=== PATIENT | female | born 2000 | race Caucasian/White ===

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

== ENCOUNTER → 2020-03-18 | Outpatient (REF) | payer OTHER ==
[2020-03-18 15:59] LABS: HEMATOCRIT 41.8 % (36.0-47.0); HEMOGLOBIN 13.1 g/dl (12.0-15.5); MEAN CORPUSCULAR HEMOGLOBIN 30.5 pg (27.0-33.0); MEAN CORPUSCULAR HGB CONC 31.3 g/dl (32.0-36.5); MEAN CORPUSCULAR VOLUME 97.4 fl (80.0-96.0); PLATELET COUNT, AUTOMATED 358 10^3/uL (150-450); RED BLOOD COUNT 4.29 10^6/uL (4.00-5.40); WHITE BLOOD COUNT 10.3 10^3/uL (4.0-10.0)
[2020-03-18 16:17] LABS: FREE T4 0.97 NG/DL (0.78-1.33); GLUCOSE CHALLENGE TEST 1 HOUR 115 MG/DL (LESS THAN 140); THYROID STIMULATING HORMONE 0.537 uIU/ML (0.463-3.98)
[2020-03-18 16:41] LABS: HEMOGLOBIN A1c 4.7 %
[2020-03-18 17:00] LABS: HEPATITIS C VIRUS ABY INDEX 0.1 INDEX (<0.8); HIV 1&2 SCREEN CENTAUR NEGATIVE (NEGATIVE)
[2020-03-21 14:09] LABS: VITAMIN D 1,25 DIHYDROXY 77.7 pg/mL (19.9-79.3)
== END ==
LOC: M PLALAB 11:29
PROVIDERS: ATTEND Advanced Practice Midwife
DX: Z3A.08 8 weeks gestation of pregnancy (principal)

== ENCOUNTER → 2020-05-02 | Outpatient (REF) | payer OTHER ==
[2020-05-02 14:31] LABS: ALT/SGPT 27 U/L (12-78); BILIRUBIN,DIRECT < 0.1 MG/DL (0.0-0.2); BILIRUBIN,TOTAL 0.1 MG/DL (0.2-1.0); TOTAL PROTEIN 6.6 GM/DL (6.4-8.2)
== END ==
LOC: M PLALAB 11:17
PROVIDERS: ATTEND Advanced Practice Midwife
DX: L29.9 Pruritus, unspecified (principal)

== ENCOUNTER → 2020-05-12 | Outpatient (CLI) | payer OTHER ==
--- NOTE | 2020-05-12 08:52 | REP ---
INDICATION: ANATOMY COMPARISON: None. TECHNIQUE: Transabdominal obstetrical ultrasound with color Doppler evaluation. FINDINGS: Examination demonstrates a single live intrauterine in cephalic presentation. motion is identified by technologist. Placenta is noted posterior and grade 1 without evidence for placenta previa or abruption. Amniotic fluid volume is normal. Cervix measures 4.6 cm in length and appears closed. Gestational age by 1st ultrasound: Not available. Gestational age by LMP: Not available. Gestational age by current measurements 19 weeks 3 days with DEWAYNE 10/03/2020. FHR equals 158 beats per minute. BPD: 4.5 cm at 19 weeks 5 days HC: 16.6 cm at 19 weeks 2 days AC: 13.9 cm at 19 weeks 2 days FL: 3.1 cm at 19 weeks 5 days HL: 2.9 cm at 19 weeks 3 days HC/AC: 1.19 Estimated weight 295 grams (49thpercentile). Anatomical assessment demonstrates normal structures including cranium, choroid plexus, cavum, cerebellum/posterior fossa, facial features, lungs, four-chamber heart/ventricular outflow tracts, diaphragm, stomach, cord insertion/three-vessel cord, kidneys/bladder, spine, and extremities. IMPRESSION: SINGLE LIVE INTRAUTERINE IN CEPHALIC PRESENTATION DEMONSTRATING APPROPRIATE ESTIMATED WEIGHT. ANATOMICAL ASSESSMENT IS COMPLETE AND NORMAL. <Electronically signed by Ovidio Callaway > 05/12/20 [id number]
== END ==
LOC: M WHC 06:47
PROVIDERS: ATTEND Advanced Practice Midwife
DX: Z36.3 Encounter for antenatal screening for malformations (principal); Z3A.19 19 weeks gestation of pregnancy

== ENCOUNTER → 2020-06-19 | Outpatient (REF) | payer OTHER | LOC: M PLALAB 08:17 | PROVIDERS: ATTEND Obstetrics & Gynecology | DX: Z3A.24 24 weeks gestation of pregnancy (principal); Z53.9 Procedure and treatment not carried out, unspecified reason ==

== ENCOUNTER 2020-07-02 07:10 | Outpatient (CLI) | payer OTHER ==
[~2020-07-02] VITALS: Ht 162.6 cm; Wt 104.9 kg
[2020-07-02 07:24] VITALS: BP 128/66
[2020-07-02] MEDS ORDERED: metroNIDAZOLE (FLAGYL) 500MG TABLET PO ONE (09:45)
[2020-07-02 11:41] LABS: CHLAMYDIA DNA AMPLIFICATION NEGATIVE (NEGATIVE); GC DNA AMPLIFICATION NEGATIVE (NEGATIVE)
== END 2020-07-02 09:38 | disposition home or self-care (01) ==
LOC: M LDO 07:10
PROVIDERS: ATTEND Obstetrics & Gynecology
DX: O23.592 Infection of other part of genital tract in pregnancy, second trimester (principal); B96.89 Other specified bacterial agents as the cause of diseases classified elsewhere; Z3A.26 26 weeks gestation of pregnancy

== ENCOUNTER → 2020-07-07 | Outpatient (REF) | payer OTHER ==
[2020-07-07 13:43] LABS: HEMATOCRIT 38.8 % (36.0-47.0); HEMOGLOBIN 12.4 g/dl (12.0-15.5); MEAN CORPUSCULAR HEMOGLOBIN 31.1 pg (27.0-33.0); MEAN CORPUSCULAR VOLUME 97.2 fl (80.0-96.0); PLATELET COUNT, AUTOMATED 344 10^3/uL (150-450); RED BLOOD COUNT 3.99 10^6/uL (4.00-5.40); WHITE BLOOD COUNT 12.1 10^3/uL (4.0-10.0)
== END ==
LOC: M PLALAB 09:48
PROVIDERS: ATTEND Obstetrics & Gynecology
DX: Z36.89 Encounter for other specified antenatal screening (principal); Z3A.24 24 weeks gestation of pregnancy

== ENCOUNTER 2020-08-16 23:54 | Outpatient (CLI) | payer OTHER ==
[~2020-08-16] VITALS: Ht 162.6 cm; Wt 109.3 kg
[2020-08-17 00:10] VITALS: BP 130/74
[2020-08-17] MEDS ORDERED: PREN29CH2 PO (00:15)
[2020-08-17 01:23] VITALS: BP 117/70
[2020-08-17] MEDS ORDERED: ACETAMINOPHEN 500 MG TAB PO PRN (01:35)
[2020-08-17 02:35] VITALS: BP 134/75
--- NOTE | 2020-08-17 15:00 | IPNPDOC ---
Text Note Date of Service The patient was seen on 08/17/20. NOTE L&D Triage Note: S: 20yo G1 at 33wks presets with c/o back and abd pain. Reports active movement. No vaginal bleeding or LO . O: vss, AF cat 1 tracing, irreg ctx Gen: well appearing abd: soft, gravid, nttp cx: closed UA: neg FFN: neg A/P: 26yo G1 at 33wks, not in PTL Reassuring status -home with PTL precautions and FKC -oral hydration Naima Jin MD VS,Candis, I+O VSCandis, I+O Vital Signs Date Time Temp Pulse Resp B/P (MAP) Pulse Ox O2 Delivery O2 Flow Rate FiO2 08/17/20 02:35 104 18 134/75 (94) 08/17/20 00:10 96.9 97 Room Air NAIMA JIN MD. Aug 17, 2020 15:00
== END 2020-08-17 02:46 | disposition home or self-care (01) ==
LOC: M LDO 23:54
PROVIDERS: ATTEND Obstetrics & Gynecology
DX: O26.893 Other specified pregnancy related conditions, third trimester (principal); Z3A.33 33 weeks gestation of pregnancy; R10.9 Unspecified abdominal pain; M54.5 Low back pain; Z88.1 Allergy status to other antibiotic agents; Z88.8 Allergy status to other drugs, medicaments and biological substances

== ENCOUNTER → 2020-08-19 | Outpatient (CLI) | payer OTHER ==
[~2020-08-19] MED LIST changes: +PREN29CH2 PO
--- NOTE | 2020-08-19 16:39 | REP ---
INDICATION: SIZE/DATE DISCREPANCY/GROWTH COMPARISON: 05/12/2020 TECHNIQUE: Transabdominal obstetrical ultrasound with color Doppler evaluation. FINDINGS: Examination demonstrates a single live intrauterine in cephalic presentation. motion is identified by technologist. Placenta is noted posterior and grade 2 without evidence for placenta previa or abruption. Amniotic fluid volume is normal. Cervix appears closed. Selected gestational age: 33 weeks 4 days with DEWAYNE 10/03/2020. Gestational age by current measurements 35 weeks 3 days with DEWAYNE 09/20/2020. FHR equals 140 beats per minute. BPD: 9.0 cm at 36 weeks 2 days HC: 31.1 cm at 34 weeks 6 days AC: 31.8 cm at there is 35 weeks 5 days FL: 7.0 cm at 35 weeks 6 days HL: 6.0 cm at 34 weeks 3 days HC/AC: 0.98 Estimated weight 2745 grams (greater than 97thpercentile based on selected age). ROMINA: 17.2 cm (8.2-24.7) Umbilical artery SD ratio: 3.23 (1.76-3.72) IMPRESSION: Single live advanced gestation in cephalic presentation. Estimated weight is greater than 97th percentile based on selected age. <Electronically signed by Ovidio Callaway > 08/19/20 [id number]
== END ==
LOC: M WHC 15:27
PROVIDERS: ATTEND Obstetrics & Gynecology
DX: O26.843 Uterine size-date discrepancy, third trimester (principal); Z3A.33 33 weeks gestation of pregnancy

== ENCOUNTER 2020-09-01 16:04 | Outpatient (CLI) | payer OTHER ==
[~2020-09-01] VITALS: Ht 160 cm; Wt 111.9 kg
[2020-09-01 17:08] VITALS: BP 136/64
--- NOTE | 2020-09-01 17:14 | IPNPDOC ---
Text Note Date of Service The patient was seen on 09/01/20. NOTE Subjective: Angela is a 20-year-old female who is a at 35.3 weeks gestation who presented to L&D with complaints of decreased movement. She reports occasional movement noted throughout the day but decreased and about 1 per hour. She reports some abdominal tightening but no pain and occasional low back pain. She denies vaginal bleeding or leaking of fluid. After being in the department for 30 minutes she reports active movement. She also reports she see her baby moving from the outside. Objective: FHR: 140, moderate variability, positive accelerations, no decelerations. Audible movement heart on EFM [place]: Contractions 2-5 minutes. General: No apparent distress. Alert and oriented. Respiratory: regular rate without use of accessory muscles Abdomen: gravid, soft and without any tenderness of abdomen. movement palpated by touch by myself. US: cephalic presentation, active movement noted and breathing motions noted. ROMINA >13 cm. Assessment: IUP at 35.3 weeks gestation, decreased movement Plan: non-stress test today. Bedside ultrasound done. She has an appointment . Discharged to home. Reviewed access to care, kick count, labor signs and danger signs to report. VS,Fishbone, I+O VS, Fishbone, I+O Vital Signs Label Value Date Time Patient Temperature 98.6 degrees F 09/01/20 1708 Temperature Source Temporal 09/01/20 1708 Pulse 96 09/01/20 1708 Respiratory Rate 18 bpm 09/01/20 1708 Blood Pressure Assessment 136/64 (88) 09/01/20 1708 Source Automatic Cuff (NIBP) SANDHYA CASTELLON CNM Sep 01, 2020 17:14
== END 2020-09-01 18:25 | disposition home or self-care (01) ==
LOC: M LDO 16:04
PROVIDERS: ATTEND Advanced Practice Midwife
DX: O36.8130 Decreased fetal movements, third trimester, not applicable or unspecified (principal); Z3A.35 35 weeks gestation of pregnancy; Z88.1 Allergy status to other antibiotic agents; Z88.8 Allergy status to other drugs, medicaments and biological substances

== ENCOUNTER → 2020-09-04 | Outpatient (REF) | payer OTHER | LOC: M SFHCWAGY 16:57 | PROVIDERS: ATTEND Advanced Practice Midwife | DX: O99.213 Obesity complicating pregnancy, third trimester (principal); E66.9 Obesity, unspecified ==

== ENCOUNTER → 2020-09-12 | Outpatient (CLI) | payer OTHER ==
--- NOTE | 2020-09-12 08:36 | REP ---
INDICATION: UTERINE SIZE DATE DISCRPANCY,GROWTH COMPARISON: 08/19/2020 TECHNIQUE: Transabdominal obstetrical ultrasound with color Doppler evaluation. FINDINGS: Examination demonstrates a single live intrauterine in cephalic presentation. motion is identified by technologist. Placenta is noted posterior and grade 2 without evidence for placenta previa or abruption. Amniotic fluid volume is normal. Cervix measures 3.2 cm in length and appears closed.. Selected gestational age: 37 weeks 0 days with DEWAYNE 10/03/2020. Gestational age by current measurements 37 weeks 5 days with DEWAYNE 09/28/2020. FHR equals 127 beats per minute. BPD: 9.4 cm at 38 weeks 2 days HC: 33.4 cm at there is 30 weeks 1 day AC: 33.5 cm at 37 weeks 2 days FL: 7.3 cm at 37 weeks 1 day HL: 6.5 cm at 37 weeks 4 days HC/AC: 1.00 Estimated weight 3230 grams (70thpercentile). ROMINA: 15.6 cm Umbilical artery SD ratio: 2.21 IMPRESSION: Single live intrauterine in cephalic presentation demonstrating appropriate interval growth. Amniotic fluid volume is normal. <Electronically signed by Ovidio Callaway > 09/12/20 0354
== END ==
LOC: M WHC 07:27
PROVIDERS: ATTEND Advanced Practice Midwife
DX: O26.843 Uterine size-date discrepancy, third trimester (principal); Z3A.37 37 weeks gestation of pregnancy

== ENCOUNTER 2020-09-24 21:13 | Inpatient (IN) | payer OTHER ==
[~2020-09-24] VITALS: Ht 162.6 cm; Wt 117.0 kg
[2020-09-24 21:30] VITALS: BP 136/67
[2020-09-24] MEDS ORDERED: PENICILLIN G POTASSIUM IV 5 MU in D5W MINI-BAG PLUS 100 ML IV STA (22:00)
[2020-09-24] MEDS ORDERED: METHYLERGONOVINE MALEATE 0.2 MG/ML VIAL (J2210) IM PRN (22:00)
[2020-09-24] MEDS ORDERED: LIDOCAINE 1% MDV 20ML VIAL INFIL PRN (22:00)
[2020-09-24] MEDS ORDERED: OXYTOCIN DRIP 30 UNITS in IV 1 EA IV SCH (22:00)
[2020-09-24] MEDS ORDERED: OXYTOCIN INJ 10 UNITS/ML VIAL (J2590) IM PRN (22:00)
[2020-09-24] MEDS ORDERED: OXYTOCIN DRIP 30 UNITS in IV 1 EA IV PRN (22:00)
[2020-09-24 22:26] LABS: HEMATOCRIT 34.5 % (36.0-47.0); HEMOGLOBIN 11.3 g/dl (12.0-15.5); MEAN CORPUSCULAR HEMOGLOBIN 29.9 pg (27.0-33.0); MEAN CORPUSCULAR HGB CONC 32.8 g/dl (32.0-36.5); MEAN CORPUSCULAR VOLUME 91.3 fl (80.0-96.0); PLATELET COUNT, AUTOMATED 283 10^3/uL (150-450); RED BLOOD COUNT 3.78 10^6/uL (4.00-5.40); WHITE BLOOD COUNT 15.2 10^3/uL (4.0-10.0)
--- NOTE | 2020-09-24 22:48 | HPE ---
HISTORY AND PHYSICAL DATE OF ADMISSION: 09/24/2020 HISTORY OF PRESENT ILLNESS: Angela is a 20-year-old, 1, para 0 at 38 and 5/7 weeks gestation, EDC of 10/03/2020 based on last menstrual period and confirmed by first trimester ultrasound. She presents to labor and delivery today with report of spontaneous rupture of membranes at approximately 2039. She does report continued leakage. She denies vaginal bleeding. The fetus has been active. She does report some mild cramping prior and after her rupture of membranes. Her care was initiated at [facility] in the first trimester. 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 OBSTETRIC HISTORY: Primigravida. OBSTETRIC LABS: A+. Antibody screen negative. Syphilis negative. Gonorrhea and Chlamydia negative. Hepatitis B negative. Hepatitis C negative. HIV negative. Rubella immune. GDS 112. GBS positive. She did test positive for Trichomoniasis in the early part of her . PAST MEDICAL HISTORY: Organic brain damage, obesity, concussion x2, exercise induced asthma, childhood Varicella, menorrhagia, paroxysmal hemicrania. PAST SURGICAL HISTORY: Denies history of surgeries. FAMILY HISTORY: Diabetes, hypertension, non-psychotic mental disorder, hypothyroid, degenerative disc disease, depression, bipolar, scoliosis, esophageal cancer, hypercholesterolemia. SOCIAL HISTORY: The patient is single. The father of the baby is at bedside as well as her mother and they are supportive. She is a nonsmoker. She denies alcohol or drug use. Positive history of Trichomoniasis. Denies history of abuse; physical, sexual, emotional. ALLERGIES: Cefdinir causes hives. Clindamycin causes hives. Azithromycin hives. Tramadol hives. Doxycycline hives. Bupropion irritability. OBJECTIVE: VITALS: Temperature 98.1, pulse 118, respirations not recorded, blood pressure 136/67. GENERAL: She is alert and oriented x3. She is smiling and talkative. heart rate is 145 with minimal variability, positive accelerations, negative decelerations. Contractions appear to be every 5 minutes. They do palpate mild. Her abdomen is gravid, cephalic presentation. Estimated weight 4200 grams. Sterile speculum exam: Positive pooling, positive Nitrazine, ferning is inconclusive, clear fluid. Sterile vaginal exam: 2 cm dilated, 50% effaced, at -2 station. ASSESSMENT: Intrauterine at 38 and 5/7 weeks. heart rate is category 1. Spontaneous rupture of membranes. PLAN: Admit the patient to labor and delivery. Start GBS prophylaxis, saline lock. Routine laboratories. Out of bed ad-david. Clear diet. The patient desires to try to avoid an epidural for her labor. I do plan to start I.V. Pitocin for labor induction. Risks, benefits and alternatives have been reviewed with the patient and her family. All of their questions have been answered. She has been verbally consented for emergency surgery and blood products if they are necessary. I do anticipate labor.
[2020-09-24] MEDS: LR 1,000 ML IV SCH (23:20)
[2020-09-24 23:32] VITALS: BP 111/54
[2020-09-25] VITALS (80 sets, daily range): BP systolic 82–144; BP diastolic 40–80
[2020-09-25] MEDS ORDERED: FENTANYL 2MCG/ML ROPIVACAINE 0.2% IN 0.9% NACL 100ML IVBAG As Ordered ONE (01:32)
[2020-09-25] MEDS ORDERED: NALOXONE INJ 0.4MG/1ML VIAL (J2310 PER 1MG) IV PRN ×3 (02:40→21:02)
[2020-09-25] MEDS ORDERED: diphenhydrAMINE 50MG/ML VIAL (J1200) IV PRN ×2 (02:40→21:02)
[2020-09-25] MEDS ORDERED: LACTATED RINGER'S 1000 ML IV PRN (02:40)
[2020-09-25] MEDS ORDERED: ONDANSETRON 4MG/2ML VIAL IV PRN ×4 (02:40→22:20)
[2020-09-25] MEDS ORDERED: EPIDURAL COMMENT XX SCH (02:40)
[2020-09-25] MEDS ORDERED: REFRIGERATOR IV KEYS XX PRN (02:40)
[2020-09-25] MEDS ORDERED: EPIDURAL/PCA KEYS XX PRN (02:40)
[2020-09-25] MEDS: FENTANYL/ROPIVACAINE/NACL BAG 100 ML EPIDURAL SCH ×3 (02:45→19:14)
[2020-09-25] MEDS: ePHEDrine SULFATE 25 MG/5 ML(5MG/ML) SYRINGE IV PRN ×3 (03:16→03:29)
[2020-09-25] MEDS: PENICILLIN G POTASSIUM IV 2.5 MU in IV 1 EA IV SCH ×5 (03:21→19:43)
[2020-09-25] MEDS ORDERED: ePHEDrine SULFATE 25 MG/5 ML(5MG/ML) SYRINGE IV STA (04:35)
[2020-09-25] MEDS: LR 1,000 ML IV SCH ×3 (07:07→21:05)
[2020-09-25] MEDS ORDERED: MORPHINE PRES-FREE INJ 10 MG/10 ML VIAL (J2274) As Ordered ONE (20:35)
[2020-09-25] MEDS ORDERED: OXYTOCIN 30 UNITS IN 0.9% NaCl 500ML IV BAG (J2590) As Ordered ONE (20:36)
[2020-09-25] MEDS ORDERED: BICITRA 30ML SOLN UDC As Ordered ONE (20:41)
[2020-09-25] MEDS ORDERED: AMPICILLIN SOD/SULBACTAM SOD 3 GM in D5W MINI-BAG PLUS 100 ML IV STA (20:44)
[2020-09-25] MEDS ORDERED: NALBUPHINE HCL 10 MG/ML AMP (J2300) IV PRN (21:02)
[2020-09-25] MEDS ORDERED: METOCLOPRAMIDE INJ 10MG/2ML VIAL (J2765 PER 1) IV PRN (21:02)
--- NOTE | 2020-09-25 21:02 | IPNPDOC ---
Obstetrical Progress Note Date of Service Sep 25, 2020 Subjective Patient has been pushing now for approximate 2 hours. She reports exhaustion and unable to continue to push. Objective Vital Signs Date Time Temp Pulse Resp B/P (MAP) Pulse Ox O2 Delivery O2 Flow Rate FiO2 09/25/20 15:05 98.6 116 120/65 (83) 09/25/20 09:34 18 Assessment Heart Rate Tracing: Category I Sterile Vaginal Examination Dilation: complete Effacement (%): 100% Station: +1 Postion/Presentation: Cephalic presentation Assessment and Plan Age: 20 Status: Reassuring Group B Streptococcus: Positive Anticipate: Section (patient's been thoroughly counseled in terms of her options. Discussed further actively pushing. Patient is not a good candidate for an operative delivery at this time. Patient declines and desires to proceed with section for arrest of descent.) KEVIN CHINO MD. Sep 25, 2020 21:02
[2020-09-25] MEDS ORDERED: MEASLES,MUMPS,RUBELLA VACCINE INJ (MMR-II) (90707) SC SCH (21:05)
[2020-09-25] MEDS ORDERED: PERCOCET 5MG/325MG TAB PO PRN (21:05)
[2020-09-25] MEDS ORDERED: MOM 30ML SUSPENSION UDC PO PRN (21:05)
[2020-09-25] MEDS ORDERED: RHOGAM 300 MCG (1500 IU) INJ (J2790) IM SCH (21:05)
[2020-09-25] MEDS ORDERED: SIMETHICONE 80MG CHEW TAB PO PRN (21:05)
[2020-09-25] MEDS ORDERED: OXYTOCIN DRIP 30 UNITS in IV 1 EA IV SCH (21:05)
--- NOTE | 2020-09-25 21:09 | ROOPDOC ---
[facility] Report Of Operation Report of Operation DATE OF PROCEDURE: 09/25/20 SURGEON: Naima Jin M.D. BRISKET PULLER: none PROCEDURE: Primary section PREOPERATIVE DIAGNOSIS: 1. Arrest of descent POSTOPERATIVE DIAGNOSIS: 1. Arrest of descent ANESTHESIA: Spinal ESTIMATED BLOOD LOSS: 500 mL URINE OUTPUT: 100 mL INTRAVENOUS FLUIDS:1400 mL of lactated Ringer's solution PREOPERATIVE ANTIBIOTICS:. 3 g of Unasyn OPERATIVE FINDINGS: Liveborn male , Apgars 7 and 9. Weight 3680 g or 8 lbs. 2 oz. SPECIMENS: None DESCRIPTION OF PROCEDURE: After informed consent was obtained and written consent was reviewed. The patient was brought to the operating room where spinal anesthesia was placed. She was then placed in the supine position with a left lateral tilt. Wade catheter was placed and to gravity. Patient was then prepped and draped in the normal sterile fashion. A timeout operating room was performed identifying the patient, procedure be performed as well as drug allergies. Anesthesia was tested and deemed to be adequate. Pfannenstiel skin incision was made and this was carried down to the underlying rectus fascia. The fascia was then scored and this incision was extended bilaterally. The fascia was then dissected off the underlying rectus muscle superiorly and inferiorly. The rectus muscles were then in the midline. The peritoneum is then entered. Vesicouterine peritoneum was then tented and excised and a bladder flap was created. Mobius retractor was then placed. Next, a curvilinear incision was then made in the lower uterine segment. The head was brought to the level of the incision atraumatically and delivered along the shoulders and corpus. The cord was clamped x2. The was brought over to the warmer with a good cry. Placenta was drained and delivered grossly intact. The uterus was cleared of all clots and debris and the uterine incision was then closed using 0 Vicryl in a running locking fashion followed by a second layer of 0 Vicryl in a running nonlocking fashion for imbrication. The abdomen suctioned. Surgical sites reinspected and noted be hemostatic. The retractor was then removed. The anterior peritoneum was then reapproximated with 3-0 Vicryl. The rectus muscles were reapproximated 3-0 Vicryl. The fascia was then closed using 0 Vicryl in a running nonlocking fashion. The subcutaneous tissues was then irrigated and suctioned. Subcutaneous tissue was reapproximated using 3-0 Vicryl. Several subdermal stitch is placed using 3-0 Vicryl and the skin was closed with 4-0 Monocryl and subcuticular fashion. This incision was then cleaned and dried and was dressed. The patient was then taken to recovery in stable condition. All counts were correct. NAIMA JIN MD. Sep 25, 2020 21:09
[2020-09-25] MEDS ORDERED: PHENYLephrine 500MCG 5ML (100MCG/ML) SYRINGE As Ordered ONE ×2 (21:11→21:41)
[2020-09-25] MEDS ORDERED: dexameTHASONE 4 MG/ML 1ML VIAL (J1100 PER 1MG) As Ordered ONE (21:11)
[2020-09-25] MEDS ORDERED: ONDANSETRON 4MG/2ML VIAL As Ordered ONE (21:11)
[2020-09-25] MEDS ORDERED: KETOROLAC 30 MG/ML 1ML VIAL IV SCH (21:15)
[2020-09-25] MEDS ORDERED: OXYTOCIN INJ 10 UNITS/ML VIAL (J2590) As Ordered ONE (21:36)
[2020-09-25] MEDS ORDERED: KETOROLAC 60MG 2ML VIAL As Ordered ONE (21:41)
[2020-09-25] MEDS ORDERED: HYDROMORPHONE HCL 0.5 MG/ 0.5 ML SYRINGE (J1170 PER 1) IV PRN (22:20)
[2020-09-25] MEDS ORDERED: oxyCODONE 5MG TAB PO PRN (22:20)
[2020-09-25] MEDS ORDERED: fentaNYL 100 MCG/2 ML INJECTION (J3010) As Ordered ONE (22:26)
[2020-09-25] MEDS: fentaNYL 100 MCG/2 ML INJECTION (J3010) IV PRN ×4 (22:32→22:59)
[2020-09-26] VITALS (9 sets, daily range): BP systolic 121–141; BP diastolic 60–84
[2020-09-26] MEDS: KETOROLAC 30 MG/ML 1ML VIAL IV SCH ×3 (03:17→16:38)
[2020-09-26] MEDS: LR 1,000 ML IV SCH ×3 (05:40→21:05)
[2020-09-26 07:48] LABS: HEMATOCRIT 30.7 % (36.0-47.0); HEMOGLOBIN 10.1 g/dl (12.0-15.5); MEAN CORPUSCULAR HEMOGLOBIN 30.4 pg (27.0-33.0); MEAN CORPUSCULAR HGB CONC 32.9 g/dl (32.0-36.5); MEAN CORPUSCULAR VOLUME 92.5 fl (80.0-96.0); PLATELET COUNT, AUTOMATED 269 10^3/uL (150-450); RED BLOOD COUNT 3.32 10^6/uL (4.00-5.40); WHITE BLOOD COUNT 22.7 10^3/uL (4.0-10.0)
--- NOTE | 2020-09-26 08:49 | IPNPDOC ---
Text Note Date of Service The patient was seen on 09/26/20. NOTE PO #1 Feels well. Adequate pain management. Wade draining to gravity VSS, afebrile, normotensive Fundus firm, NT Dressing dry and intact Lochia rubra light without odor PO #1 Routine care. Consider discharge in am VS,Fishbone, I+O VS, Fishbone, I+O Laboratory Tests 09/26/20 07:16 Vital Signs Date Time Temp Pulse Resp B/P (MAP) Pulse Ox O2 Delivery O2 Flow Rate FiO2 09/26/20 06:28 96.9 115 18 130/65 (86) 97 09/26/20 03:22 Room Air I&O- Last 24 Hours up to 6 AM 09/26/20 06:00 Intake Total 4342 ml Output Total 2750 ml Balance 1592 ml Nichelle Cm CNM Sep 26, 2020 08:49
[2020-09-26] MEDS: PRENATAL VITAMINS CHEWABLE TABLET PO SCH (10:08)
[2020-09-26] MEDS: DOCUSATE SODIUM 100MG CAPSULE PO SCH ×2 (10:08→22:19)
[2020-09-27] MEDS: IBUPROFEN 800 MG TAB PO SCH ×2 (00:45→08:30)
[2020-09-27 02:00] VITALS: BP 147/73
[2020-09-27] MEDS: PERCOCET 5MG/325MG TAB PO PRN ×2 (03:54→12:07)
[2020-09-27] MEDS: LR 1,000 ML IV SCH (05:05)
[2020-09-27 06:00] VITALS: BP 146/89
--- NOTE | 2020-09-27 07:34 | DS.PDOC ---
Discharge Summary General Date of Admission Sep 24, 2020 at 22:01 Date of Discharge September 27, 2020 Discharge Summary PROCEDURES PERFORMED DURING STAY: Primary section ADMITTING DIAGNOSES: 1. Prelabor rupture of membranes at term DISCHARGE DIAGNOSES: 1. Primary section for arrest of descent COMPLICATIONS/CHIEF COMPLAINT: LABOR. HISTORY OF PRESENT ILLNESS: HOSPITAL COURSE: Ms Pritchett is a 20yo G1 now P1 admitted 09/24/2020 with prelabor rupture of membranes at term. Primary section was performed for arrest of descent. She reports adequate pain management, OOB independently, voiding, passing flatus DISCHARGE MEDICATIONS: Please see below. ALLERGIES: Please see below. PHYSICAL EXAMINATION ON DISCHARGE: VITAL SIGNS: Please see below. GENERAL: No distress HEENT: WNL NECK: Supple CARDIOVASCULAR EXAMINATION: HRR, normotensive RESPIRATORY EXAMINATION: Clear and unlabored ABDOMINAL EXAMINATION: Fundus firm. Dressing intact EXTREMITIES: Equal strength and motion SKIN: Intact NEUROLOGICAL EXAMINATION: Grossly intact PSYCHIATRIC EXAMINATION: Appropriate LABORATORY DATA: Please see below. PROGNOSIS: Good ACTIVITY: As tolerated, pelvic rest DIET: As tolerated DISCHARGE PLAN: Home with family DISPOSITION: . DISCHARGE INSTRUCTIONS: 1. Pelvic rest. Remove dressing day 5. Cleanse wound daily with soap and water. Call with fever, nausea, vomiting, chills, foul lochia or wound exudate. RTO 2wks and 6 wks CONDITION: Stable TIME SPENT ON DISCHARGE: Greater than 10 minutes. Vital Signs/I&Os Vital Signs Date Time Temp Pulse Resp B/P (MAP) Pulse Ox O2 Delivery O2 Flow Rate FiO2 09/27/20 06:00 97.8 99 18 146/89 (108) 98 Room Air I&O- Last 24 Hours up to 6 AM 09/27/20 06:00 Intake Total 3300 ml Output Total 1370 ml Balance 1930 ml Discharge Medications Scheduled No115/Iron/Folic Acid ( 19 Chewable Tablet) 1 Each Tab.chew, 1 TAB PO DAILY, (Reported) Allergies Coded Allergies: tramadol (Verified Allergy, Severe, HIVES, ITCHY FACE AND SKIN, AND THROAT IRRITATION, 07/02/20) HIVES, ITCHY FACE AND SKIN, AND THROAT IRRITATION azithromycin (Verified Allergy, Unknown, 07/02/20) cefdinir (Verified Allergy, Unknown, 07/02/20) clindamycin (Verified Allergy, Unknown, 4/21/21) doxycycline (Verified Adverse Reaction, Mild, 07/02/20) Nichelle Carr Sep 27, 2020 07:28
[2020-09-27] MEDS ORDERED: PERCOCET PO (07:37)
[2020-09-27] MEDS ORDERED: IBUP80TA PO (07:37)
[2020-09-27] MEDS: DOCUSATE SODIUM 100MG CAPSULE PO SCH (09:46)
[2020-09-27] MEDS: PRENATAL VITAMINS CHEWABLE TABLET PO SCH (09:47)
== END 2020-09-27 12:15 | disposition home or self-care (01) | DRG 540 ==
LOC: M LDO 21:13 → M LDI 22:01 → M OBS 09-25 23:40
PROVIDERS: ADMIT Advanced Practice Midwife; ATTEND Advanced Practice Midwife
PROC: 3E033VJ Introduction of Other Hormone into Peripheral Vein, Percutaneous Approach (ICD-10-PCS; 2020-09-24)
PROC: 10D00Z1 Extraction of Products of Conception, Low, Open Approach (ICD-10-PCS; principal; 2020-09-25 21:30)
DX: O42.02 Full-term premature rupture of membranes, onset of labor within 24 hours of rupture (principal); Z3A.38 38 weeks gestation of pregnancy; Z37.0 Single live birth; O99.214 Obesity complicating childbirth; E66.9 Obesity, unspecified; O99.824 Streptococcus B carrier state complicating childbirth; O75.81 Maternal exhaustion complicating labor and delivery; O32.4XX0 Maternal care for high head at term, not applicable or unspecified

== ENCOUNTER → 2021-01-15 | Outpatient (CLI) | payer OTHER ==
[~2021-01-15] MED LIST changes: +IBUP80TA PO; +PERCOCET PO
--- NOTE | 2021-01-15 13:17 | REP ---
INDICATION: DATING VIABILITY IUD SURVELLIANCE. COMPARISON: None. TECHNIQUE: Transabdominal and endovaginal probe imaging. FINDINGS: The transabdominal images show the bladder at 4.1 x 6.6 cm. I do not have a transverse bladder image. There is a gestational sac in the body and fundus of the uterus with yolk sac visible. There is a pole within that has a crown-rump length of 1.5 cm corresponding to 7 weeks 6 days. heart activity noted at 155. The amniotic fluid volume is visually normal. I see no evidence for a subchorionic bleed. Transversely in the lower uterine segment and below the sac, an IUD is seen in the endometrial cavity, best on the EV probe images. Cervix is closed and 4.1 cm long. There is no evidence of an adnexal mass. No pelvic free fluid seen on these images. IMPRESSION: Living single intrauterine gestation at 7 weeks 6 days by today's composite sonographic criteria. heart rate 155. DEWAYNE by sonography 08/28/2021. No subchorionic bleed. IUD seen in the lower uterine segment transversely, best visualized on EV probe. <Electronically signed by Noel Holguin > 01/15/21 1857
== END ==
LOC: M WHC 09:32
PROVIDERS: ATTEND Obstetrics & Gynecology
DX: Z34.90 Encounter for supervision of normal pregnancy, unspecified, unspecified trimester (principal); Z3A.01 Less than 8 weeks gestation of pregnancy; Z36.87 Encounter for antenatal screening for uncertain dates; Z97.5 Presence of (intrauterine) contraceptive device

== ENCOUNTER 2021-01-22 15:16 | Emergency (ER) | payer OTHER ==
[~2021-01-22] VITALS: Ht 162.6 cm; Wt 99.0 kg
--- OUTSIDE RECORDS SUMMARY | 2021-01-22 15:24 | CCD ---
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 confirmed 397607139 Problem Severe depression F32.2 Active confirmed 31 4928478 Problem Supervision of other normal Z34.80 Ac tive confirm 681342150 Problem Obesity affecting in first trimester O99 .211 Active confirmed 799524452589 Problem Obesity complicating in first trimester O99.211 Active confirmed 865660569660 Problem Obesity complicating in third trimester O99.213 Active confirmed 078317794373 Problem Acute cystitis with hematuria N30.01 Active confirm ed 30112352 Problem BMI 40.0-44.9, adult Z68.41 Active confirmed 465349629 Problem Cyst of left ovary N83.202 Active confirmed 70088855 Problem Obesity complicating in second trimester O99.212 Active confirmed 005390513821 Problem BMI 37.0-37.9, adult Z68.37 Active confirmed 360805964 Problem Other obesity due to excess calories E66.09 Act eloise confirmed 750928160 Problem Obesity E66.9 Active confirmed 412991410 ALLERGIES Allergen (clinical drug ingredient) Drug/Non Drug Allergy do cumented on EMR Reaction Allergy Type Onset Date Status azithromycin Azithromycin([facility] Code:[address]-68) Hives Drug All ergy Active tramadol Tramadol HCl([facility] [place] Code:[address]-26) Hives Drug Aller gy Active cefdinir Cefdinir([facility] [place] Code:[address]-36) Hives Drug Allergy Active doxycycline Doxycycline([facility] [place] Code:[address]-30) Hives Drug Aller gy Active clindamycin Clindamycin HCl([facility] Code:[address]-60) Hives Drug A llergy Active bupropion BuPROPion HCl([facility] Code:[address]-68) Ir ritability - see 03/02/19 visit Drug Allergy Active ENCOUNTERS from 2000 to 2020-12-17 Encounter Location Date Provider Diagnosis [facility] [address] [place] [address] Dec, Marisa Mullen Severe depression F32.2 IMMUNIZATIONS Vaccine Route Administration Date Status Hepatitis B Ped & Adol 0.5mL Engerix-B Unknown July 25 002 Administered Hepatitis B Ped & Adol 0.5mL Engerix-B Unknown Nov 09 002 Administered TDAP Unknown Nov 25, 2010 Administered Influenza 36 months & up VFC IM Intramuscular Apr 04, 2017 Ad ministered Imm: IPV 0.5mL Polio Unknown May 02, 2001 Administere d Imm: IPV 0.5mL Polio Unknown July 25, 2001 Administere d Imm: IPV 0.5mL Polio Unknown Nov 10, 2004 Administere d Hepatitis B Ped & Adol 0.5mL Engerix-B Unknown 2000 Administered DTAP 0.5mL Infanrix Unknown 2000 Administered HPV9 0.5mL Gardasil 9 IM Intramuscular September 26, 2019 Administe red TDAP 0.5mL Boostrix IM Intramuscular July 17, 2020 Administere d HIB 0.5mL Unknown Feb 27, 2002 Administered HIB 0.5mL Unknown Nov 09, 2001 Administered HIB 0.5mL Unknown Jan 31, 2001 Administered HIB 0.5mL Unknown 2000 Administered DTAP 0.5mL Infanrix Unknown Nov 10, 2004 Administered DTAP 0.5mL Infanrix Unknown July 25, 2001 Administered DTAP 0.5mL Infanrix Unknown May 02, 2001 Administered DTAP 0.5mL Infanrix Unknown Jan 31, 2001 Administered Meningococcal VFC 0.5mL Menveo Groups A,C,Y & W-135 IM Intra muscular Oct 27, 2017 Administered Hepatitis A Ped & Adol 0.5mL Havrix Unknown Nov 25 1 Administered Hepatitis A Ped & Adol 0.5mL Havrix Unknown May 30 12 Administered Pneumococcal 0.5mL Prevnar 13 Unknown 2000 Ad ministered Pneumococcal 0.5mL Prevnar 13 Unknown May 02, 2001 Ad ministered Meningococcal B 0.5mL Bexsero IM Intramuscular September 26, 2019 A dministered MMR 0.5mL Unknown July 25, 2001 Administered Influenza 18 yrs & older Flublok IM Intramuscular Dec 20, 2019 Administered MMR 0.5mL Unknown Nov 10, 2004 Administered Influenza 6mo & up Fluzone IM Intramuscular Dec 22, 2017 Admi nistered Pneumococcal 0.5mL Prevnar 13 Unknown July 25, 2001 Ad ministered Pneumococcal 0.5mL Prevnar 13 Unknown Nov 09, 2001 Ad ministered Imm: IPV 0.5mL Polio Unknown Jan 31, 2001 Administere d SOCIAL HISTORY Tobacco Use: Social History Observation Description Date Details (start date - stop date) Never Smoker Sex Assigned At : Social History Observation Description Sex Assigned At Unknown Education: Question Answer Notes Level of Education: High School BMI Care Goal Follow-Up Question Answer Notes Above Normal BMI Follow-Up Giving encouragement to exercise Tobacco Use: Question Answer Notes Are you a: never smoker REASON FOR REFERRAL No Information VITAL SIGNS Weight 219.4 lbs Dec, Height 64 in Dec, BMI 37.66 kg/m2 Dec, Heart Rate 125 /min Dec, Respiratory Rate 18 /min Dec, Temperature 97.5 degrees Fahrenheit Dec, Oximetry 100 Dec, Blood pressure systolic 120 mm Hg Dec, Blood pressure diastolic 80 mm Hg Dec, MEDICATIONS Medication SIG (Take, Route, Frequency, Duration) Notes Start Da te End Date Status Omeprazole 20 MG 1 capsule 30 minutes before morning meal Orally Once a day for 30 day(s) July, Active Vitamin Active Venlafaxine HCl ER 75 MG 1 capsule with food Orally Once a day f or 30 day(s) Oct, Active Tylenol 325 MG 1 tablet as needed Orally every 4 hrs Active PROCEDURES No Information RESULTS No Results REASON FOR VISIT 4 week med follow up MEDICAL (GENERAL) HISTORY Type Description Date Medical History Exercise induced asthma Medical History Concussions x2 Medical History Severe depression Medical History Paroxysmal Hemicrania - See [facility] NEurology notes (Intermittent left sided facial weakness with headaches likely secondary to some nerve damage sustained in facial trauma - Improved with Indomethacin BID Medical History Menorrhagia - Manged by MEDICAL DATA ANALYST on BCP Surgical History c section Hospitalization History childbirth Goals Section No Information Health Concerns No Information MEDICAL EQUIPMENT No Information MENTAL STATUS No Information FUNCTIONAL STATUS No Information ASSESSMENTS Encounter Date Diagnosis Assessment Notes Treatment Notes Treatm ent Clinical Notes Dec, Severe depression (ICD-10 - F32.2) PLAN OF TREATMENT Medication Medication Name Sig Start Date Stop Date Venlafaxine HCl ER 75 MG 1 capsule with food Orally Once a d ay for 30 day(s) Oct, Next Appt Details 3 Months Reason: Provider Name:Naima Balaji Jin, 2020-12-19 0 8:00:00 AM, [address] [facility], , [place], [address], Insurance Providers Payer Name Payer Address Payer Phone Insured Name Patient Relati onship to Insured Coverage Start Date Coverage End Date [facility] [address] [facility] [address] [place]
--- OUTSIDE RECORDS SUMMARY | 2021-01-22 15:24 | CCD ---
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 confirmed 845495502 Problem Severe depression F32.2 Active confirmed 31 0081408 Problem Supervision of other normal Z34.80 Ac tive confirm 008640590 Problem Obesity affecting in first trimester O99 .211 Active confirmed 693812001049 Problem Obesity complicating in first trimester O99.211 Active confirmed 377079517623 Problem Obesity complicating in third trimester O99.213 Active confirmed 206394661679 Problem Acute cystitis with hematuria N30.01 Active confirm ed 28817347 Problem BMI 40.0-44.9, adult Z68.41 Active confirmed 756541508 Problem Cyst of left ovary N83.202 Active confirmed 92639317 Problem Obesity complicating in second trimester O99.212 Active confirmed 136830875984 Problem BMI 37.0-37.9, adult Z68.37 Active confirmed 976448523 Problem Other obesity due to excess calories E66.09 Act eloise confirmed 909360779 Problem Obesity E66.9 Active confirmed 358230397 ALLERGIES Allergen (clinical drug ingredient) Drug/Non Drug Allergy do cumented on EMR Reaction Allergy Type Onset Date Status azithromycin Azithromycin([facility] Code:[address]-42) Hives Drug All ergy Active tramadol Tramadol HCl([facility] Code:[address]-04) Hives Drug Aller gy Active cefdinir Cefdinir([facility] Code:[address]-08) Hives Drug Allergy Active doxycycline Doxycycline([facility] Code:[address]-06) Hives Drug Aller gy Active clindamycin Clindamycin HCl([facility] Code:[address]-17) Hives Drug A llergy Active bupropion BuPROPion HCl([facility] Code:[address]-18) Ir ritability - see 03/02/19 visit Drug Allergy Active ENCOUNTERS from 2000 to 2020-12-25 Encounter Location Date Provider Diagnosis [facility] [address] [place] [address] Dec, 2020 Marisa Wetterhahn Pertussis exposure Z20.818 IMMUNIZATIONS Vaccine Route Administration Date Status Hepatitis B Ped & Adol 0.5mL Engerix-B Unknown July 25, 002 Administered Hepatitis B Ped & Adol 0.5mL Engerix-B Unknown Nov 09, 002 Administered TDAP Unknown Nov 25, 2010 Administered TDAP 0.5mL Boostrix IM Intramuscular July 17, 2020 Administere d HIB 0.5mL Unknown Feb 27, 2002 Administered Influenza 6mo & up Fluzone IM Intramuscular Dec 22, 2017 Admi nistered Imm: IPV 0.5mL Polio Unknown Nov 10, 2004 Administere d Hepatitis B Ped & Adol 0.5mL Engerix-B Unknown 2000 Administered DTAP 0.5mL Infanrix Unknown 2000 Administered Influenza 36 months & up VFC IM Intramuscular Apr 04, 2017 Ad ministered Meningococcal VFC 0.5mL Menveo Groups A,C,Y & W-135 IM Intra muscular Oct 27, 2017 Administered MMR 0.5mL Unknown Nov 10, 2004 Administered MMR 0.5mL Unknown July 25, 2001 Administered HIB 0.5mL Unknown Jan 31, 2001 Administered HIB 0.5mL Unknown 2000 Administered DTAP 0.5mL Infanrix Unknown Nov 10, 2004 Administered DTAP 0.5mL Infanrix Unknown July 25, 2001 Administered DTAP 0.5mL Infanrix Unknown May 02, 2001 Administered DTAP 0.5mL Infanrix Unknown Jan 31, 2001 Administered HPV9 0.5mL Gardasil 9 IM Intramuscular September 26, 2019 Administe red Pneumococcal 0.5mL Prevnar 13 Unknown May 02, 2001 Ad ministered Pneumococcal 0.5mL Prevnar 13 Unknown July 25, 2001 Ad ministered Pneumococcal 0.5mL Prevnar 13 Unknown Nov 09, 2001 Ad ministered Imm: IPV 0.5mL Polio Unknown Jan 31, 2001 Administere d Meningococcal B 0.5mL Bexsero IM Intramuscular September 26, 2019 A dministered Hepatitis A Ped & Adol 0.5mL Havrix Unknown Nov 25 1 Administered Influenza 18 yrs & older Flublok IM Intramuscular Dec 20, 2019 Administered Hepatitis A Ped & Adol 0.5mL Havrix Unknown May 30 12 Administered Pneumococcal 0.5mL Prevnar 13 Unknown 2000 Ad ministered Imm: IPV 0.5mL Polio Unknown May 02, 2001 Administere d Imm: IPV 0.5mL Polio Unknown July 25, 2001 Administere d HIB 0.5mL Unknown Nov 09, 2001 Administered SOCIAL HISTORY Tobacco Use: Social History Observation Description Date Details (start date - stop date) Never Smoker Sex Assigned At : Social History Observation Description Sex Assigned At Unknown Education: Question Answer Notes Level of Education: High School Alcohol Screening: Question Answer Notes Did you have a drink containing alcohol in the past year? Ye s Points 1 Interpretation Negative How often did you have six or more drinks on one occas ion in the past year? Never (0 points) How many drinks did you have on a typica l day when you were drinking in the past year? 1 or 2 (0 points) How often did you have a drink containing alcohol in t he past year? Monthly or less (1 point) BMI Care Goal Follow-Up Question Answer Notes Above Normal BMI Follow-Up Giving encouragement to exercise Tobacco Use: Question Answer Notes Are you a: never smoker REASON FOR REFERRAL No Information VITAL SIGNS No information MEDICATIONS Medication SIG (Take, Route, Frequency, Duration) Notes Start Da te End Date Status Omeprazole 20 MG 1 capsule 30 minutes before morning meal Orally Once a day for 30 day(s) July, Active Venlafaxine HCl ER 75 MG 1 capsule with food Orally Once a day f or 30 day(s) Oct, Active Vitamin Active Bactrim DS 800-160 MG 1 tablet Orally Twice a day for 14 day(s) Dec, Active Tylenol 325 MG 1 tablet as needed Orally every 4 hrs Active PROCEDURES No Information RESULTS No Results REASON FOR VISIT Mom dx MEDICAL (GENERAL) HISTORY Type Description Date Medical History Exercise induced asthma Medical History Concussions x2 Medical History Severe depression Medical History Paroxysmal Hemicrania - See [facility] NEurology notes (Intermittent left sided facial weakness with headaches likely secondary to some nerve damage sustained in facial trauma - Improved with Indomethacin BID Medical History Menorrhagia - Manged by AUTOMOTIVE PROJECT ENGINEER on BCP Surgical History c section Hospitalization History childbirth Goals Section No Information Health Concerns No Information MEDICAL EQUIPMENT No Information MENTAL STATUS No Information FUNCTIONAL STATUS No Information ASSESSMENTS Encounter Date Diagnosis Assessment Notes Treatment Notes Treatm ent Clinical Notes Dec, Pertussis exposure (ICD-10 - Z20.818) PLAN OF TREATMENT Medication Medication Name Sig Start Date Stop Date Bactrim DS 800-160 MG 1 tablet Orally Twice a day for 14 day(s) Dec, Next Appt Details Provider Name:Naima Jin, 2021-02-20 1 0:00:00 AM, [address] [facility], , [place], [address], Insurance Providers Payer Name Payer Address Payer Phone Insured Name Patient Relati onship to Insured Coverage Start Date Coverage End Date [facility]AN [facility] [address] [facility] [id number] [phone] [place]
--- OUTSIDE RECORDS SUMMARY | 2021-01-22 15:24 | CCD ---
Author Author [facility] Organization 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 confirmed 537162741 Problem Severe depression F32.2 Active confirmed 31 4535151 Problem Supervision of other normal Z34.80 Ac tive confirm 782189315 Problem Obesity affecting in first trimester O99 .211 Active confirmed 786593684157 Problem Obesity complicating in first trimester O99.211 Active confirmed 808514751802 Problem Obesity complicating in third trimester O99.213 Active confirmed 379402936448 Problem Acute cystitis with hematuria N30.01 Active confirm ed 29613823 Problem BMI 40.0-44.9, adult Z68.41 Active confirmed 105183595 Problem Cyst of left ovary N83.202 Active confirmed 09538821 Problem Obesity complicating in second trimester O99.212 Active confirmed 383199700213 Problem BMI 37.0-37.9, adult Z68.37 Active confirmed 849834615 Problem Other obesity due to excess calories E66.09 Act eloise confirmed 953887130 Problem Obesity E66.9 Active confirmed 603012658 ALLERGIES Allergen (clinical drug ingredient) Drug/Non Drug Allergy do cumented on EMR Reaction Allergy Type Onset Date Status azithromycin Azithromycin([facility] Code:[address]-80) Hives Drug All ergy Active tramadol Tramadol HCl([facility] Code:[address]-72) Hives Drug Aller gy Active cefdinir Cefdinir([facility] Code:[address]-00) Hives Drug Allergy Active doxycycline Doxycycline([facility] Code:[address]-08) Hives Drug Aller gy Active clindamycin Clindamycin HCl([facility] Code:[address]-76) Hives Drug A llergy Active bupropion BuPROPion HCl([facility] Code:[address]-80) Ir ritability - see 03/02/19 visit Drug Allergy Active ENCOUNTERS from 2000 to 2020-12-19 Encounter Location Date Provider Diagnosis [facility] [facility] [phone] [place] [address] Dec, [facility] IMMUNIZATIONS Vaccine Route Administration Date Status Hepatitis B Ped & Adol 0.5mL Engerix-B Unknown July 25 002 Administered Hepatitis B Ped & Adol 0.5mL Engerix-B Unknown Nov 09 002 Administered TDAP Unknown Nov 25, 2010 Administered TDAP 0.5mL Boostrix IM Intramuscular July 17, 2020 Administere d Imm: IPV 0.5mL Polio Unknown May 02, [...] IM Intra muscular Oct 27, 2017 Administered HIB 0.5mL Unknown Feb 27, 2002 Administered [...] IM Intramuscular September 26, 2019 Administe red Hepatitis A Ped & Adol 0.5mL Havrix Unknown Nov 25 1 Administered Hepatitis A Ped & Adol 0.5mL Havrix Unknown May 30 12 Administered Pneumococcal 0.5mL Prevnar 13 Unknown 2000 Ad ministered Pneumococcal 0.5mL Prevnar 13 Unknown May 02, 2001 Ad ministered Meningococcal B 0.5mL Bexsero IM Intramuscular September 26, 2019 A dministered Influenza 6mo & up Fluzone IM Intramuscular Dec 22, 2017 Admi nistered Influenza 18 yrs & older Flublok IM Intramuscular Dec 20, 2019 Administered MMR 0.5mL Unknown July 25, 2001 Administered MMR 0.5mL Unknown Nov 10, 2004 Administered Pneumococcal 0.5mL Prevnar 13 Unknown July 25, [...] Notes Start Da te End Date Status Vitamin Active Tylenol 325 MG 1 tablet as needed Orally every 4 hrs Active Omeprazole 20 MG 1 capsule 30 minutes before morning meal Orally Once a day for 30 day(s) July, Active Venlafaxine HCl ER 75 MG 1 capsule with food Orally Once a day f or 30 day(s) Oct, Active PROCEDURES No Information RESULTS No Results REASON FOR VISIT NEEDS APPT MEDICAL (GENERAL) HISTORY Type Description Date Medical History Exercise induced asthma Medical History Concussions x2 Medical History Severe depression Medical History Paroxysmal Hemicrania - See [facility] NEurology notes (Intermittent left sided facial weakness with headaches likely secondary to some nerve damage sustained in facial trauma - Improved with Indomethacin BID Medical History Menorrhagia - Manged by FISHING VESSEL CAPTAIN on BCP Surgical History c section Hospitalization History childbirth Goals Section No Information Health Concerns No Information MEDICAL EQUIPMENT No Information MENTAL STATUS No Information FUNCTIONAL STATUS No Information ASSESSMENTS No Information PLAN OF TREATMENT Next Appt Details Provider Name:Naima Jin, 2021-02-20 1 0:00:00 AM, [address] [facility], , [place], [address], Insurance Providers Payer Name Payer Address Payer Phone Insured Name Patient Relati onship to Insured Coverage Start Date Coverage End Date [facility] [employer] PLAN [facility] [address] [facility] [phone] [place]
--- OUTSIDE RECORDS SUMMARY | 2021-01-22 15:24 | CCD ---
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 confirmed 547972383 Problem Severe depression F32.2 Active confirmed 31 6815045 Problem Supervision of other normal Z34.80 Ac tive confirm 549370754 Problem Obesity affecting in first trimester O99 .211 Active confirmed 497998878012 Problem Obesity complicating in first trimester O99.211 Active confirmed 191666248893 Problem Obesity complicating in third trimester O99.213 Active confirmed 980524935549 Problem Acute cystitis with hematuria N30.01 Active confirm ed 14593488 Problem BMI 40.0-44.9, adult Z68.41 Active confirmed 915845314 Problem Cyst of left ovary N83.202 Active confirmed 16498966 Problem Obesity complicating in second trimester O99.212 Active confirmed 371520572135 Problem BMI 37.0-37.9, adult Z68.37 Active confirmed 272260919 Problem Other obesity due to excess calories E66.09 Act eloise confirmed 946041538 Problem Obesity E66.9 Active confirmed 675506499 ALLERGIES Allergen (clinical drug ingredient) Drug/Non Drug Allergy do cumented on EMR Reaction Allergy Type Onset Date Status azithromycin Azithromycin([facility] Code:[address]-53) Hives Drug All ergy Active tramadol Tramadol HCl([facility] Code:[address]-51) Hives Drug Aller gy Active cefdinir Cefdinir([facility] Code:[address]-15) Hives Drug Allergy Active doxycycline Doxycycline([facility] Code:[address]-86) Hives Drug Aller gy Active clindamycin Clindamycin HCl([facility] Code:[address]-77) Hives Drug A llergy Active bupropion BuPROPion HCl([facility] Code:[address]-78) Ir ritability - see 03/02/19 visit Drug Allergy Active ENCOUNTERS from 2000 to 2021-01-14 Encounter Location Date Provider Diagnosis [facility] [facility] [phone] [place] [address] Jan, [facility] IMMUNIZATIONS Vaccine Route Administration Date Status Hepatitis [...] 0.5mL Prevnar 13 Unknown 2000 Ad ministered Influenza 6mo & up Fluzone IM Intramuscular Dec 22, 2017 Admi nistered Pneumococcal 0.5mL Prevnar 13 Unknown May 02, 2001 Ad ministered Meningococcal B 0.5mL Bexsero IM Intramuscular September 26, 2019 A dministered MMR 0.5mL Unknown July 25, 2001 Administered Influenza 18 yrs & older Flublok IM Intramuscular Dec 20, 2019 Administered MMR 0.5mL Unknown Nov 10, 2004 Administered Hepatitis A Ped & Adol 0.5mL Havrix Unknown Nov 25 1 Administered Pneumococcal 0.5mL Prevnar 13 Unknown July [...] a day f or 30 day(s) Oct, Not-Taking Bactrim DS 800-160 MG 1 tablet Orally Twice a day for 14 day(s) Dec, Not-Taking Vitamin Active Tylenol 325 MG 1 tablet as needed Orally every 4 hrs Active PROCEDURES No Information RESULTS No Results REASON FOR VISIT IUD/positive test MEDICAL (GENERAL) HISTORY Type Description Date Medical History Exercise induced asthma Medical History Concussions x2 Medical History Severe depression Medical History Paroxysmal Hemicrania - See [facility] NEurology notes (Intermittent left sided facial weakness with headaches likely secondary to some nerve damage sustained in facial trauma - Improved with Indomethacin BID Medical History Menorrhagia - Manged by RUG SETTER VELVET on BCP Surgical History c section Hospitalization History childbirth Goals Section No Information Health Concerns No Information MEDICAL EQUIPMENT No Information MENTAL STATUS No Information FUNCTIONAL STATUS No Information ASSESSMENTS No Information PLAN OF TREATMENT Next Appt Details Provider Name:Naima Jin, 2021-02-20 1 0:00:00 AM, [address] [facility], , [place], [address], Insurance Providers Payer Name Payer Address Payer Phone Insured Name Patient Relati onship to Insured Coverage Start Date Coverage End Date FORMERLY [facility] COMMUNITY PLAN [facility] [address] [facility] [phone] BING NASSAR
--- OUTSIDE RECORDS SUMMARY | 2021-01-22 15:24 | CCD ---
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 confirmed 443702083 Problem Severe depression F32.2 Active confirmed 31 0886936 Problem Supervision of other normal Z34.80 Ac tive confirm 264356783 Problem Obesity affecting in first trimester O99 .211 Active confirmed 137454005166 Problem Obesity complicating in first trimester O99.211 Active confirmed 257087730765 Problem Obesity complicating in third trimester O99.213 Active confirmed 141891082750 Problem Acute cystitis with hematuria N30.01 Active confirm ed 94658395 Problem BMI 40.0-44.9, adult Z68.41 Active confirmed 175556296 Problem Cyst of left ovary N83.202 Active confirmed 95093665 Problem Obesity complicating in second trimester O99.212 Active confirmed 487923051507 Problem BMI 37.0-37.9, adult Z68.37 Active confirmed 873874546 Problem Other obesity due to excess calories E66.09 Act eloise confirmed 337861798 Problem Obesity E66.9 Active confirmed 855952883 ALLERGIES Allergen (clinical drug ingredient) Drug/Non Drug Allergy do cumented on EMR Reaction Allergy Type Onset Date Status azithromycin Azithromycin([facility] Code:[address]-94) Hives Drug All ergy Active tramadol Tramadol HCl([facility] Code:[address]-04) Hives Drug Aller gy Active cefdinir Cefdinir([facility] Code:[address]-19) Hives Drug Allergy Active doxycycline Doxycycline([facility] Code:[address]-21) Hives Drug Aller gy Active clindamycin Clindamycin HCl([facility] Code:[address]-52) Hives Drug A llergy Active bupropion BuPROPion HCl([facility] Code:[address]-52) Ir ritability - see 03/02/19 visit Drug Allergy Active ENCOUNTERS from 2000 to 2020-12-31 Encounter Location Date Provider Diagnosis [facility] [address] [facility] [phone] [place] [address] Dec, [facility] Encounter for initia l prescription of intrauterine contraceptive device (IUD) Z30.014 IMMUNIZATIONS Vaccine Route Administration Date Status Hepatitis [...] FOR REFERRAL No Information VITAL SIGNS Weight 218.6 lbs Dec, Height 64 in Dec, BMI 37.52 kg/m2 Dec, Blood pressure systolic 122 mm Hg Dec, Blood pressure diastolic 74 mm Hg Dec, MEDICATIONS Medication SIG (Take, [...] needed Orally every 4 hrs Active PROCEDURES from 2000 to 2020-12-31 Procedure Date Ordered Result Body Site Medication: Meli 13.5 mg (levonorgestrel intrauterine contraceptive system) 2020-12-19 N/A URINE TEST 2020-12-19 Negative RESULTS No Results REASON FOR VISIT MELI INSERTION MEDICAL (GENERAL) HISTORY Type Description Date Medical History Exercise induced asthma Medical History Concussions x2 Medical History Severe depression Medical History Paroxysmal Hemicrania - See [facility] NEurology notes (Intermittent left sided facial weakness with headaches likely secondary to some nerve damage sustained in facial trauma - Improved with Indomethacin BID Medical History Menorrhagia - Manged by THREE DIMENSIONAL ART INSTRUCTOR on BCP Surgical History c section Hospitalization History childbirth Goals Section No Information Health Concerns No Information MEDICAL EQUIPMENT No Information MENTAL STATUS No Information FUNCTIONAL STATUS No Information ASSESSMENTS Encounter Date Diagnosis Assessment Notes Treatment Notes Treatm ent Clinical Notes Dec, Encounter for initial prescr iption of intrauterine contraceptive device (IUD) (ICD-10 - Z30.014) PLAN OF TREATMENT Medication Medication Name Sig Start Date Stop Date Bactrim DS 800-160 MG 1 tablet Orally Twice a day for 14 day(s) Dec, Next Appt Details 6 Weeks Reason:yearly Provider Name:Naima Balaji Jin, 2021-02-20 1 0:00:00 AM, [address] [facility], , [place], [address], Follow Up:6 Weeksyearly Insurance Providers Payer Name Payer Address Payer Phone Insured Name Patient Relati onship to Insured Coverage Start Date Coverage End Date [facility] COMMUNITY [facility] [address] [facility] [phone] BING NASSAR
--- OUTSIDE RECORDS SUMMARY | 2021-01-22 15:24 | CCD ---
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 confirmed 178461939 Problem Severe depression F32.2 Active confirmed 31 1530805 Problem Supervision of other normal Z34.80 Ac tive confirm 680770169 Problem Obesity affecting in first trimester O99 .211 Active confirmed 772195688581 Problem Obesity complicating in first trimester O99.211 Active confirmed 505399057063 Problem Obesity complicating in third trimester O99.213 Active confirmed 586050011785 Problem Acute cystitis with hematuria N30.01 Active confirm ed 49058185 Problem BMI 40.0-44.9, adult Z68.41 Active confirmed 064608523 Problem Cyst of left ovary N83.202 Active confirmed 38976192 Problem Obesity complicating in second trimester O99.212 Active confirmed 117213496967 Problem BMI 37.0-37.9, adult Z68.37 Active confirmed 388114254 Problem Other obesity due to excess calories E66.09 Act eloise confirmed 759810620 Problem Obesity E66.9 Active confirmed 576064522 ALLERGIES Allergen (clinical drug ingredient) Drug/Non Drug Allergy do cumented on EMR Reaction Allergy Type Onset Date Status azithromycin Azithromycin([facility] Code:[address]-80) Hives Drug All ergy Active tramadol Tramadol HCl([facility] Code:[address]-68) Hives Drug Aller gy Active cefdinir Cefdinir([facility] Code:[address]-89) Hives Drug Allergy Active doxycycline Doxycycline([facility] Code:[address]-72) Hives Drug Aller gy Active clindamycin Clindamycin HCl([facility] Code:[address]-60) Hives Drug A llergy Active bupropion BuPROPion HCl([facility] Code:[address]-95) Ir ritability - see 03/02/19 visit Drug Allergy Active ENCOUNTERS from 2000 to 2020-11-08 Encounter Location Date Provider Diagnosis [facility] [address] [facility] [phone] [place] [address] Sep, [facility] examinati on following delivery Z39.2 IMMUNIZATIONS Vaccine Route Administration Date Status Hepatitis [...] FOR REFERRAL No Information VITAL SIGNS Weight 229.6 lbs Sep, Height 64 in Sep, BMI 39.41 kg/m2 Sep, Blood pressure systolic 122 mm Hg Sep, Blood pressure diastolic 70 mm Hg Sep, MEDICATIONS Medication SIG (Take, Route, Frequency, Duration) Notes Start Da te End Date Status COVID-19 mRNA Vacc (Moderna) Pfizer Not-Taking Vitamin Active Tylenol 325 MG 1 tablet as needed Orally every 4 hrs Active Venlafaxine HCl ER 75 MG 1 capsule with food Orally Once a day f or 30 day(s) Oct, Active metroNIDAZOLE 500 MG 1 tablet Orally Twice a day for 7 day(s) Jun, Not-Taking Venlafaxine HCl ER 37.5 MG 1 capsule with food Orally Once a day for 7 day(s) Oct, Active Omeprazole 20 MG 1 capsule 30 minutes before morning meal Orally Once a day for 30 day(s) July, Active PROCEDURES No Information RESULTS No Results REASON FOR VISIT 2 WK INCISION CHECK MEDICAL (GENERAL) HISTORY Type Description Date Medical History Exercise induced asthma Medical History Concussions x2 Medical History Severe depression Medical History Paroxysmal Hemicrania - See [facility] NEurology notes (Intermittent left sided facial weakness with headaches likely secondary to some nerve damage sustained in facial trauma - Improved with Indomethacin BID Medical History Menorrhagia - Manged by MACHINE GUIDE BASE WINDER on BCP Surgical History c section Hospitalization History childbirth Goals Section No Information Health Concerns No Information MEDICAL EQUIPMENT No Information MENTAL STATUS No Information FUNCTIONAL STATUS No Information ASSESSMENTS Encounter Date Diagnosis Assessment Notes Treatment Notes Treatm ent Clinical Notes Sep, examination follo wing delivery (ICD-10 - Z39.2) PLAN OF TREATMENT Next Appt Details 6 Weeks Reason:pp visit Provider Name:Marisa Mullen, 2020-11 08:15:00 AM, [address], , [place], [address], Provider Name:Naima Balaji Davin, 2020-12-19 0 8:00:00 AM, [address] [facility], , [place], [address], Follow Up:6 Weekspp visit Insurance Providers Payer Name Payer Address Payer Phone Insured Name Patient Relati onship to Insured Coverage Start Date Coverage End Date FORMERLY [facility] COMMUNITY PLAN [facility] [place] [place] [address] [facility] [phone] BING NASSAR
--- OUTSIDE RECORDS SUMMARY | 2021-01-22 15:24 | CCD ---
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 confirmed 638449520 Problem Severe depression F32.2 Active confirmed 31 3446979 Problem Supervision of other normal Z34.80 Ac tive confirm 194855631 Problem Obesity affecting in first trimester O99 .211 Active confirmed 538605507819 Problem Obesity complicating in first trimester O99.211 Active confirmed 732202800339 Problem Obesity complicating in third trimester O99.213 Active confirmed 074710312497 Problem Acute cystitis with hematuria N30.01 Active confirm ed 82962143 Problem BMI 40.0-44.9, adult Z68.41 Active confirmed 140300427 Problem Cyst of left ovary N83.202 Active confirmed 77112056 Problem Obesity complicating in second trimester O99.212 Active confirmed 179945604878 Problem BMI 37.0-37.9, adult Z68.37 Active confirmed 476677127 Problem Other obesity due to excess calories E66.09 Act eloise confirmed 404851621 Problem Obesity E66.9 Active confirmed 423850476 ALLERGIES Allergen (clinical drug ingredient) Drug/Non Drug Allergy do cumented on EMR Reaction Allergy Type Onset Date Status azithromycin Azithromycin([facility] Code:[address]-85) Hives Drug All ergy Active tramadol Tramadol HCl([facility] Code:[address]-64) Hives Drug Aller gy Active cefdinir Cefdinir([facility] Code:[address]-97) Hives Drug Allergy Active doxycycline Doxycycline([facility] Code:[address]-76) Hives Drug Aller gy Active clindamycin Clindamycin HCl([facility] Code:[address]-27) Hives Drug A llergy Active bupropion BuPROPion HCl([facility] Code:[address]-12) Ir ritability - see 03/02/19 visit Drug Allergy Active ENCOUNTERS from 2000 to 2020-11-26 Encounter Location Date Provider Diagnosis [facility] [address] [place] [address] Nov, 2020 Marisa Mullen IMMUNIZATIONS Vaccine Route Administration Date Status Hepatitis [...] Administered DTAP 0.5mL Infanrix Unknown 2000 Administered Meningococcal VFC 0.5mL Menveo Groups A,C,Y & W-135 IM Intra muscular Oct 27, 2017 Administered HPV9 0.5mL Gardasil 9 IM Intramuscular September 26, 2019 Administe red HIB 0.5mL Unknown Feb 27, 2002 Administered HIB 0.5mL Unknown Nov 09, 2001 Administered HIB 0.5mL Unknown Jan 31, 2001 Administered HIB 0.5mL Unknown 2000 Administered DTAP 0.5mL Infanrix Unknown Nov 10, 2004 Administered DTAP 0.5mL Infanrix Unknown July 25, 2001 Administered DTAP 0.5mL Infanrix Unknown May 02, 2001 Administered DTAP 0.5mL Infanrix Unknown Jan 31, 2001 Administered Meningococcal B 0.5mL Bexsero IM Intramuscular September 26, 2019 A dministered Hepatitis A Ped & Adol 0.5mL Havrix Unknown Nov 25 1 Administered Hepatitis A Ped & Adol 0.5mL Havrix Unknown May 30 12 Administered Pneumococcal 0.5mL Prevnar 13 Unknown 2000 Ad ministered Pneumococcal 0.5mL Prevnar 13 Unknown May 02, 2001 Ad ministered TDAP 0.5mL Boostrix IM Intramuscular July 17, 2020 Administere d Influenza 6mo & up Fluzone IM Intramuscular [...] Information RESULTS No Results REASON FOR VISIT no show 11/26/2020 MEDICAL (GENERAL) HISTORY Type Description Date Medical History Exercise induced asthma Medical History Concussions x2 Medical History Severe depression Medical History Paroxysmal Hemicrania - See [facility] NEurology notes (Intermittent left sided facial weakness with headaches likely secondary to some nerve damage sustained in facial trauma - Improved with Indomethacin BID Medical History Menorrhagia - Manged by EVENT EXECUTIVE on BCP Surgical History c section Hospitalization History childbirth Goals Section No Information Health Concerns No Information MEDICAL EQUIPMENT No Information MENTAL STATUS No Information FUNCTIONAL STATUS No Information ASSESSMENTS No Information PLAN OF TREATMENT Next Appt Details Provider Name:Naima Jin, 2020-12-19 0 8:00:00 AM, [address] [facility], , [place], [address], Insurance Providers Payer Name Payer Address Payer Phone Insured Name Patient Relati onship to Insured Coverage Start Date Coverage End Date [facility] COMMUNITY PLAN [facility] [address] [facility] [phone] BING NASSAR
--- OUTSIDE RECORDS SUMMARY | 2021-01-22 15:25 | CCD ---
Author Author [facility] Organization [facility] Address Unknown Phone Unavailable Care Team Providers Care Gel Coater Name Role Phone Maring, Yaw PA Unavailable Unavailable Maring, Yaw PA Unavailable Unavailable Maring, Yaw PA Unavailable Unavailable Maring, Yaw PA Unavailable Unavailable Maring, Yaw PA Unavailable Unavailable Maring, Yaw PA Unavailable Unavailable Maring, Yaw PA Unavailable Unavailable Maring, Yaw PA Unavailable Unavailable Maring, Yaw PA Unavailable Unavailable Maring, Yaw PA Unavailable Unavailable Maring, Yaw PA Unavailable Unavailable Maring, Yaw PA Unavailable Unavailable Maring, Yaw PA Unavailable Unavailable Maring, Yaw PA Unavailable Unavailable Maring, Yaw PA Unavailable Unavailable Maring, Yaw PA Unavailable Unavailable Jameson, Linda Archana PA Unavailable Unavailable Jameson, Linda Archana PA Unavailable Unavailable Jameson, Linda Archana PA Unavailable Unavailable Jameson, Linda Archana PA Unavailable Unavailable Jameson, Linda Archana PA Unavailable Unavailable Jameson, Linda Archana PA Unavailable Unavailable Jameson, Linda Archana PA Unavailable Unavailable Jameson, Linda Archana PA Unavailable Unavailable Jameson, Linda Archana PA Unavailable Unavailable Jameson, Linda Archana PA Unavailable Unavailable Re-disclosure Warning The records that you are about to access may contain information from federally-assisted alcohol or drug abuse programs. If such information is present, then the following federally mandated warning applies: This information has been disclosed to you from records protected by federal confidentiality rules (42 CFR part 2). The federal rules prohibit you from making any further disclosure of this information unless further disclosure is expressly permitted by the written consent of the person to whom it pertains or as otherwise permitted by 42 CFR part 2. A general authorization for the release of medical or other information is NOT sufficient for this purpose. The Federal rules restrict any use of the information to criminally investigate or prosecute any alcohol or drug abuse patient.The records that you are about to access may contain highly sensitive health information, the redisclosure of which is protected by Article 27-F of the [facility] Public Health law. If you continue you may have access to information: Regarding HIV / AIDS; Provided by facilities licensed or operated by the [facility] Office of Mental Health; or Provided by the [facility] Office for People With Developmental Disabilities. If such information is present, then the following [facility] mandated warning applies: This information has been disclosed to you from confidential records which are protected by state law. State law prohibits you from making any further disclosure of this information without the specific written consent of the person to whom it pertains, or as otherwise permitted by law. Any unauthorized further disclosure in violation of state law may result in a fine or senior care sentence or both. A general authorization for the release of medical or other information is NOT sufficient authorization for further disc losure. Family History Family Member Name Family Member Gender Family Member Status Date o f Status Description Data Source(s) Unknown Unknown Problem MEDENT ([facility]) Encounters Encounter Providers Location Date Indications Data Source(s ) Unknown [address] [facility] [address] 01/14/2021 12:00:00 AM EDT eCW1 ([facility]) Unknown [address] [facility] [id number] 12/24/2020 12:00:00 AM EDT eCW1 ([facility]) ( PROC) [facility] Procedure [address] [place] [address] 12/19/2020 12:00:00 AM EDT eCW1 ([facility]) Unknown [address] [facility] [address] 12/19/2020 12:00:00 AM EDT eCW1 ([facility]) Outpatient [address] [facility] [address] 12/12/2020 12:00:00 AM EDT eCW1 ([facility]) Unknown [address] [facility] [address] 11/26/2020 12:00:00 AM EDT eCW1 ([facility]) ( ESTOB) [facility] Est OB [address] [place] [address] 11/03/2020 12:00:00 AM EDT eCW1 ([facility]) Outpatient [address] [facility] [address] 10/30/2020 12:00:00 AM EDT eCW1 ([facility]) Unknown [address] [facility] [address] 10/18/2020 12:00:00 AM EDT eCW1 ([facility]) ( ESTOB) [facility] Est OB [address] [place] [address] 10/07/2020 12:00:00 AM EDT eCW1 ([facility]) (WC ESTOB) [facility] Est OB [address] [place] [address] 09/23/2020 12:00:00 AM EDT eCW1 ([facility]) (WC ESTOB) [facility] Est OB [address] [place] [address] 09/16/2020 12:00:00 AM EDT eCW1 ([facility]) (WC ESTOB) [facility] Est OB [address] [place] [address] 09/04/2020 12:00:00 AM EDT eCW1 ([facility]) [place] [address] [facility] [address] 08/29/2020 12:00:00 AM EDT eCW1 ([facility]) [place] [address] [facility] [address] 08/25/2020 12:00:00 AM EDT eCW1 ([facility]) (WC ESTOB) [facility] Est OB [address] [place] [address] 08/21/2020 12:00:00 AM EDT eCW1 ([facility]) (WC ESTOB) [facility] Est OB [address] [place] [address] 08/07/2020 12:00:00 AM EDT eCW1 ([facility]) [place] [address] [facility] [address] 08/04/2020 12:00:00 AM EDT eCW1 ([facility]) [place] [address] [facility] [address] 07/28/2020 12:00:00 AM EDT eCW1 ([facility]) [place] [address] [facility] [address] 07/27/2020 12:00:00 AM EDT eCW1 ([facility]) (WC ESTOB) [facility] Est OB [address] [place] [address] 07/17/2020 12:00:00 AM EDT eCW1 ([facility]) Outpatient Attender: Yaw GARDINER 07/02/19 08:43:54 AM EDT - 07/01/2020 09:34:51 AM EDT DocuTap ([facility] ) ( ESTOB) enter Est OB [address] [place] [address] 06/19/2020 12:00:00 AM EDT eCW1 ([facility]) ( ESTOB) enter Est OB [address] [place] [address] 05/22/2020 12:00:00 AM EST eCW1 ([facility]) ( ESTOB) enter Est OB [address] [place] [address] 04/24/2020 12:00:00 AM EST eCW1 ([facility]) ( ESTOB) [facility] Est OB [address] [place] [address] 03/27/2020 12:00:00 AM EST eCW1 ([facility]) [place] [address] [facility] [address] 03/11/2020 12:00:00 AM EST eCW1 ([facility]) ( NEWOB) [facility] New OB Visit [address] [place] [address] 02/28/2020 12:00:00 AM EST eCW1 ([facility]) Outpatient [address] [facility] [place] [address] 12/20/2019 12:00:00 AM EDT eCW1 ([facility]) Outpatient [address] [facility] [place] [address] 12/18/2019 12:00:00 AM EDT eCW1 ([facility]) Unknown [address] [facility] [place] [address] 12/18/2019 12:00:00 AM EDT eCW1 ([facility]) [place] [address] [facility] [address] 12/12/2019 12:00:00 AM EDT eCW1 ([facility]) Outpatient Attender: Archana morales 12/07/2019 10:15:00 AM EDT MEDENT ([facility]) Immunizations Vaccine Date Status Description Data Source(s) COVID-19 VACCINE Pfizer 08/28/2020 12:00:00 AM EDT completed [place] Vaccine Series Complete: YESThis Data wa s Submitted to [facility] [employer]. COVID-19 VACCINE Pfizer 08/07/2020 12:00:00 AM EDT completed [place] Vaccine Series Complete: NOThis Data was Submitted to [facility] [employer]. Tdap 07/17/2020 12:28:00 PM EDT completed e CW1 ([facility]) Tdap 07/17/2020 12:28:00 PM EDT completed e CW1 ([facility]) Tdap 07/17/2020 12:28:00 PM EDT completed e CW1 ([facility]) Tdap 07/17/2020 12:28:00 PM EDT completed e CW1 ([facility]) Tdap 07/17/2020 12:28:00 PM EDT completed e CW1 ([facility]) Tdap 07/17/2020 12:28:00 PM EDT completed e CW1 ([facility]) Tdap 07/17/2020 12:28:00 PM EDT completed e CW1 ([facility]) Tdap 07/17/2020 12:28:00 PM EDT completed e CW1 ([facility]) Tdap 07/17/2020 12:28:00 PM EDT completed e CW1 ([facility]) Tdap 07/17/2020 12:28:00 PM EDT completed e CW1 ([facility]) Tdap 07/17/2020 12:28:00 PM EDT completed e CW1 ([facility]) Tdap 07/17/2020 12:28:00 PM EDT completed e CW1 ([facility]) Tdap 07/17/2020 12:28:00 PM EDT completed e CW1 ([facility]) Tdap 07/17/2020 12:28:00 PM EDT completed e CW1 ([facility]) Tdap 07/17/2020 12:28:00 PM EDT completed e CW1 ([facility]) Tdap 07/17/2020 12:28:00 PM EDT completed e CW1 ([facility]) Tdap 07/17/2020 12:28:00 PM EDT completed e CW1 ([facility]) Tdap 07/17/2020 12:28:00 PM EDT completed e CW1 ([facility]) Tdap 07/17/2020 12:28:00 PM EDT completed e CW1 ([facility]) Tdap 07/17/2020 12:28:00 PM EDT completed e CW1 ([facility]) Tdap 07/17/2020 12:28:00 PM EDT completed e CW1 ([facility]) influenza, recombinant, quadrIvalent,injectable, prese rvative free 12/20/2019 08:58:00 AM EDT completed eCW1 ([facility]) influenza, recombinant, quadrIvalent,injectable, prese rvative free 12/20/2019 08:58:00 AM EDT completed eCW1 ([facility]) influenza, recombinant, quadrIvalent,injectable, prese rvative free 12/20/2019 08:58:00 AM EDT completed eCW1 ([facility]) influenza, recombinant, quadrIvalent,injectable, prese rvative free 12/20/2019 08:58:00 AM EDT completed eCW1 ([facility]) influenza, recombinant, quadrIvalent,injectable, prese rvative free 12/20/2019 08:58:00 AM EDT completed eCW1 ([facility]) influenza, recombinant, quadrIvalent,injectable, prese rvative free 12/20/2019 08:58:00 AM EDT completed eCW1 ([facility]) influenza, recombinant, quadrIvalent,injectable, prese rvative free 12/20/2019 08:58:00 AM EDT completed eCW1 ([facility]) influenza, recombinant, quadrIvalent,injectable, prese rvative free 12/20/2019 08:58:00 AM EDT completed eCW1 ([facility]) influenza, recombinant, quadrIvalent,injectable, prese rvative free 12/20/2019 08:58:00 AM EDT completed eCW1 ([facility]) influenza, recombinant, quadrIvalent,injectable, prese rvative free 12/20/2019 08:58:00 AM EDT completed eCW1 ([facility]) influenza, recombinant, quadrIvalent,injectable, prese rvative free 12/20/2019 08:58:00 AM EDT completed eCW1 ([facility]) influenza, recombinant, quadrIvalent,injectable, prese rvative free 12/20/2019 08:58:00 AM EDT completed eCW1 ([facility]) influenza, recombinant, quadrIvalent,injectable, prese rvative free 12/20/2019 08:58:00 AM EDT completed eCW1 ([facility]) influenza, recombinant, quadrIvalent,injectable, prese rvative free 12/20/2019 08:58:00 AM EDT completed eCW1 ([facility]) influenza, recombinant, quadrIvalent,injectable, prese rvative free 12/20/2019 08:58:00 AM EDT completed eCW1 ([facility]) influenza, recombinant, quadrIvalent,injectable, prese rvative free 12/20/2019 08:58:00 AM EDT completed eCW1 ([facility]) influenza, recombinant, quadrIvalent,injectable, prese rvative free 12/20/2019 08:58:00 AM EDT completed eCW1 ([facility]) influenza, recombinant, quadrIvalent,injectable, prese rvative free 12/20/2019 08:58:00 AM EDT completed eCW1 ([facility]) influenza, recombinant, quadrIvalent,injectable, prese rvative free 12/20/2019 08:58:00 AM EDT completed eCW1 ([facility]) influenza, recombinant, quadrIvalent,injectable, prese rvative free 12/20/2019 08:58:00 AM EDT completed eCW1 ([facility]) influenza, recombinant, quadrIvalent,injectable, prese rvative free 12/20/2019 08:58:00 AM EDT completed eCW1 ([facility]) influenza, recombinant, quadrIvalent,injectable, prese rvative free 12/20/2019 08:58:00 AM EDT completed eCW1 ([facility]) influenza, recombinant, quadrIvalent,injectable, prese rvative free 12/20/2019 08:58:00 AM EDT completed eCW1 ([facility]) influenza, recombinant, quadrIvalent,injectable, prese rvative free 12/20/2019 08:58:00 AM EDT completed eCW1 ([facility]) influenza, recombinant, quadrIvalent,injectable, prese rvative free 12/20/2019 08:58:00 AM EDT completed eCW1 ([facility]) influenza, recombinant, quadrIvalent,injectable, prese rvative free 12/20/2019 08:58:00 AM EDT completed eCW1 ([facility]) influenza, recombinant, quadrIvalent,injectable, prese rvative free 12/20/2019 08:58:00 AM EDT completed eCW1 ([facility]) influenza, recombinant, quadrIvalent,injectable, prese rvative free 12/20/2019 08:58:00 AM EDT completed eCW1 ([facility]) influenza, recombinant, quadrIvalent,injectable, prese rvative free 12/20/2019 08:58:00 AM EDT completed eCW1 ([facility]) influenza, recombinant, quadrIvalent,injectable, prese rvative free 12/20/2019 08:58:00 AM EDT completed eCW1 ([facility]) Medications Medication Brand Name Start Date Product Form Dose Route Admi nistrative Instructions Pharmacy Instructions Status Indications Reaction Description Data Source(s) Sulfamethoxazole 800 MG / Trimethoprim 1 60 MG Oral Tablet [Bactrim] Bactrim DS 800-160 MG Bactrim DS 800-160 MG 12/25/2020 12:00:00 AM EDT 1.0 {table t} active Bactrim DS 800-160 MG eCW1 ( [facility]) Sulfamethoxazole 800 MG / Trimethoprim 1 60 MG Oral Tablet [Bactrim] Bactrim DS 800-160 MG Bactrim DS 800-160 MG 12/25/2020 12:00:00 AM EDT 1.0 {table t} suspended Bactrim DS 800-160 MG eCW1 ( [facility]) Sulfamethoxazole 800 MG / Trimethoprim 1 60 MG Oral Tablet [Bactrim] Bactrim DS 800-160 MG Bactrim DS 800-160 MG 12/25/2020 12:00:00 AM EDT 1.0 {table t} active Bactrim DS 800-160 MG eCW1 ( [facility]) 24 HR venlafaxine 75 MG Extended Release Oral Capsule Venlafaxine HCl ER 75 MG Venlafaxine HCl ER 75 MG 10/30/2020 12:00:00 AM EDT 1.0 {capsule_wi th_food} active Venlafaxine HCl ER 75 MG eCW1 ([facility]) 24 HR venlafaxine 75 MG Extended Release Oral Capsule Venlafaxine HCl ER 75 MG Venlafaxine HCl ER 75 MG 10/30/2020 12:00:00 AM EDT 1.0 {capsule_wi th_food} active Venlafaxine HCl ER 75 MG eCW1 ([facility]) 24 HR venlafaxine 37.5 MG Extended Relea se Oral Capsule Venlafaxine HCl ER 37.5 MG Venlafaxine HCl ER 37.5 MG 10/30/2020 12:00:00 AM EDT 1.0 {capsule_with_food} active Venlafaxine HCl ER 37.5 MG eCW1 ([facility]) 24 HR venlafaxine 75 MG Extended Release Oral Capsule Venlafaxine HCl ER 75 MG Venlafaxine HCl ER 75 MG 10/30/2020 12:00:00 AM EDT 1.0 {capsule_wi th_food} active Venlafaxine HCl ER 75 MG eCW1 ([facility]) 24 HR venlafaxine 75 MG Extended Release Oral Capsule Venlafaxine HCl ER 75 MG Venlafaxine HCl ER 75 MG 10/30/2020 12:00:00 AM EDT 1.0 {capsule_wi th_food} active Venlafaxine HCl ER 75 MG eCW1 ([facility]) 24 HR venlafaxine 37.5 MG Extended Relea se Oral Capsule Venlafaxine HCl ER 37.5 MG Venlafaxine HCl ER 37.5 MG 10/30/2020 12:00:00 AM EDT 1.0 {capsule_with_food} active Venlafaxine HCl ER 37.5 MG eCW1 ([facility]) 24 HR venlafaxine 37.5 MG Extended Relea se Oral Capsule Venlafaxine HCl ER 37.5 MG Venlafaxine HCl ER 37.5 MG 10/30/2020 12:00:00 AM EDT 1.0 {capsule_with_food} active Venlafaxine HCl ER 37.5 MG eCW1 ([facility]) 24 HR venlafaxine 75 MG Extended Release Oral Capsule Venlafaxine HCl ER 75 MG Venlafaxine HCl ER 75 MG 10/30/2020 12:00:00 AM EDT 1.0 {capsule_wi th_food} active Venlafaxine HCl ER 75 MG eCW1 ([facility]) 24 HR venlafaxine 75 MG Extended Release Oral Capsule Venlafaxine HCl ER 75 MG Venlafaxine HCl ER 75 MG 10/30/2020 12:00:00 AM EDT 1.0 {capsule_wi th_food} suspended Venlafaxine HCl ER 75 MG eCW1 ([facility]) 24 HR venlafaxine 37.5 MG Extended Relea se Oral Capsule Venlafaxine HCl ER 37.5 MG Venlafaxine HCl ER 37.5 MG 10/30/2020 12:00:00 AM EDT 1.0 {capsule_with_food} active Venlafaxine HCl ER 37.5 MG eCW1 ([facility]) 24 HR venlafaxine 75 MG Extended Release Oral Capsule Venlafaxine HCl ER 75 MG Venlafaxine HCl ER 75 MG 10/30/2020 12:00:00 AM EDT 1.0 {capsule_wi th_food} active Venlafaxine HCl ER 75 MG eCW1 ([facility]) 24 HR venlafaxine 75 MG Extended Release Oral Capsule Venlafaxine HCl ER 75 MG Venlafaxine HCl ER 75 MG 10/30/2020 12:00:00 AM EDT 1.0 {capsule_wi th_food} active Venlafaxine HCl ER 75 MG eCW1 ([facility]) 24 HR venlafaxine 75 MG Extended Release Oral Capsule Venlafaxine HCl ER 75 MG Venlafaxine HCl ER 75 MG 10/30/2020 12:00:00 AM EDT 1.0 {capsule_wi th_food} active Venlafaxine HCl ER 75 MG eCW1 ([facility]) Omeprazole 20 MG Delayed Release Oral Capsule Omeprazole 20 MG 07/17/2020 12:00:00 AM EDT active Omeprazo le 20 MG eCW1 ([facility]) Omeprazole 20 MG Delayed Release Oral Capsule Omeprazole 20 MG 07/17/2020 12:00:00 AM EDT active Omeprazo le 20 MG eCW1 ([facility]) Omeprazole 20 MG Delayed Release Oral Capsule Omeprazole 20 MG 07/17/2020 12:00:00 AM EDT active Omeprazo le 20 MG eCW1 ([facility]) Omeprazole 20 MG Delayed Release Oral Capsule Omeprazole 20 MG 07/17/2020 12:00:00 AM EDT active Omeprazo le 20 MG eCW1 ([facility]) Omeprazole 20 MG Delayed Release Oral Capsule Omeprazole 20 MG 07/17/2020 12:00:00 AM EDT active Omeprazo le 20 MG eCW1 ([facility]) Omeprazole 20 MG Delayed Release Oral Capsule Omeprazole 20 MG 07/17/2020 12:00:00 AM EDT active Omeprazo le 20 MG eCW1 ([facility]) Omeprazole 20 MG Delayed Release Oral Capsule Omeprazole 20 MG 07/17/2020 12:00:00 AM EDT active Omeprazo le 20 MG eCW1 ([facility]) Omeprazole 20 MG Delayed Release Oral Capsule Omeprazole 20 MG 07/17/2020 12:00:00 AM EDT active Omeprazo le 20 MG eCW1 ([facility]) Omeprazole 20 MG Delayed Release Oral Capsule Omeprazole 20 MG 07/17/2020 12:00:00 AM EDT active Omeprazo le 20 MG eCW1 ([facility]) Omeprazole 20 MG Delayed Release Oral Capsule Omeprazole 20 MG 07/17/2020 12:00:00 AM EDT active Omeprazo le 20 MG eCW1 ([facility]) Omeprazole 20 MG Delayed Release Oral Capsule Omeprazole 20 MG 07/17/2020 12:00:00 AM EDT active Omeprazo le 20 MG eCW1 ([facility]) Omeprazole 20 MG Delayed Release Oral Capsule Omeprazole 20 MG 07/17/2020 12:00:00 AM EDT active e CW1 ([facility]) Omeprazole 20 MG Delayed Release Oral Capsule Omeprazole 20 MG 07/17/2020 12:00:00 AM EDT active Omeprazo le 20 MG eCW1 ([facility]) Omeprazole 20 MG Delayed Release Oral Capsule Omeprazole 20 MG 07/17/2020 12:00:00 AM EDT active Omeprazo le 20 MG eCW1 ([facility]) Omeprazole 20 MG Delayed Release Oral Capsule Omeprazole 20 MG 07/17/2020 12:00:00 AM EDT active Omeprazo le 20 MG eCW1 ([facility]) Omeprazole 20 MG Delayed Release Oral Capsule Omeprazole 20 MG 07/17/2020 12:00:00 AM EDT active Omeprazo le 20 MG eCW1 ([facility]) Omeprazole 20 MG Delayed Release Oral Capsule Omeprazole 20 MG 07/17/2020 12:00:00 AM EDT active Omeprazo le 20 MG eCW1 ([facility]) Omeprazole 20 MG Delayed Release Oral Capsule Omeprazole 20 MG 07/17/2020 12:00:00 AM EDT active Omeprazo le 20 MG eCW1 ([facility]) Omeprazole 20 MG Delayed Release Oral Capsule Omeprazole 20 MG 07/17/2020 12:00:00 AM EDT active Omeprazo le 20 MG eCW1 ([facility]) Omeprazole 20 MG Delayed Release Oral Capsule Omeprazole 20 MG 07/17/2020 12:00:00 AM EDT active Omeprazo le 20 MG eCW1 ([facility]) Omeprazole 20 MG Delayed Release Oral Capsule Omeprazole 20 MG 07/17/2020 12:00:00 AM EDT active Omeprazo le 20 MG eCW1 ([facility]) Metronidazole 500 MG Oral Tablet metroNIDAZOLE 500 MG metroN IDAZOLE 500 MG 07/02/2020 12:00:00 AM EDT 1.0 {tablet} suspende d metroNIDAZOLE 500 MG eCW1 ([facility]) Metronidazole 500 MG Oral Tablet metroNIDAZOLE 500 MG metroN IDAZOLE 500 MG 07/02/2020 12:00:00 AM EDT 1.0 {tablet} suspende d metroNIDAZOLE 500 MG eCW1 ([facility]) Metronidazole 500 MG Oral Tablet Metronidazole 500 MG 2020 12:00:00 AM EDT 1.0 {tablet} suspended e CW1 ([facility]) Metronidazole 500 MG Oral Tablet metroNIDAZOLE 500 MG metroN IDAZOLE 500 MG 07/02/2020 12:00:00 AM EDT 1.0 {tablet} suspende d metroNIDAZOLE 500 MG eCW1 ([facility]) Metronidazole 500 MG Oral Tablet metroNIDAZOLE 500 MG metroN IDAZOLE 500 MG 07/02/2020 12:00:00 AM EDT 1.0 {tablet} suspende d metroNIDAZOLE 500 MG eCW1 ([facility]) Metronidazole 500 MG Oral Tablet Metronidazole 500 MG 2020 12:00:00 AM EDT 1.0 {tablet} suspended Metronid azole 500 MG eCW1 ([facility]) Metronidazole 500 MG Oral Tablet metroNIDAZOLE 500 MG metroN IDAZOLE 500 MG 07/02/2020 12:00:00 AM EDT 1.0 {tablet} suspende d metroNIDAZOLE 500 MG eCW1 ([facility]) Metronidazole 500 MG Oral Tablet Metronidazole 500 MG 2020 12:00:00 AM EDT 1.0 {tablet} suspended Metronid azole 500 MG eCW1 ([facility]) Metronidazole 500 MG Oral Tablet metroNIDAZOLE 500 MG metroN IDAZOLE 500 MG 07/02/2020 12:00:00 AM EDT 1.0 {tablet} suspende d metroNIDAZOLE 500 MG eCW1 ([facility]) Metronidazole 500 MG Oral Tablet Metronidazole 500 MG 2020 12:00:00 AM EDT 1.0 {tablet} suspended Metronid azole 500 MG eCW1 ([facility]) Metronidazole 500 MG Oral Tablet metroNIDAZOLE 500 MG metroN IDAZOLE 500 MG 07/02/2020 12:00:00 AM EDT 1.0 {tablet} suspende d metroNIDAZOLE 500 MG eCW1 ([facility]) Metronidazole 500 MG Oral Tablet metroNIDAZOLE 500 MG metroN IDAZOLE 500 MG 07/02/2020 12:00:00 AM EDT 1.0 {tablet} suspende d metroNIDAZOLE 500 MG eCW1 ([facility]) Metronidazole 500 MG Oral Tablet metroNIDAZOLE 500 MG metroN IDAZOLE 500 MG 07/02/2020 12:00:00 AM EDT 1.0 {tablet} suspende d metroNIDAZOLE 500 MG eCW1 ([facility]) Metronidazole 500 MG Oral Tablet metroNIDAZOLE 500 MG metroN IDAZOLE 500 MG 07/02/2020 12:00:00 AM EDT 1.0 {tablet} suspende d metroNIDAZOLE 500 MG eCW1 ([facility]) Metronidazole 500 MG Oral Tablet metroNIDAZOLE 500 MG metroN IDAZOLE 500 MG 07/02/2020 12:00:00 AM EDT 1.0 {tablet} suspende d metroNIDAZOLE 500 MG eCW1 ([facility]) Metronidazole 500 MG Oral Tablet metroNIDAZOLE 500 MG metroN IDAZOLE 500 MG 07/02/2020 12:00:00 AM EDT 1.0 {tablet} suspende d metroNIDAZOLE 500 MG eCW1 ([facility]) Metronidazole 500 MG Oral Tablet METRONIDAZOLE 12/21/2019 12:0 0:00 AM EDT tablet 4 TAKE 4 TABLETS BY MOUTH 1 TIME P ER DAY TAKE 4 TABLETS BY MOUTH 1 TIME PER DAY SOLD: 12/21/2019 [facility] Metronidazole 500 MG Oral Tablet METRONIDAZOLE 12/13/2019 12:0 0:00 AM EDT tablet 14 TAKE ONE TABLET BY MOUTH TWICE A DAY TAKE ONE TABLET BY MOUTH TWICE A DAY SOLD: 12/13/2019 [facility] Metronidazole 500 MG Oral Tablet Metronidazole 500 MG 2019 12:00:00 AM EDT 1.0 {tablet} active Metronidazo le 500 MG eCW1 ([facility]) Metronidazole 500 MG Oral Tablet Metronidazole 500 MG 2019 12:00:00 AM EDT 1.0 {tablet} active Metronidazo le 500 MG eCW1 ([facility]) Metronidazole 500 MG Oral Tablet Metronidazole 500 MG 2019 12:00:00 AM EDT 1.0 {tablet} active Metronidazo le 500 MG eCW1 ([facility]) Metronidazole 500 MG Oral Tablet Metronidazole 500 MG 2019 12:00:00 AM EDT 1.0 {tablet} active Metronidazo le 500 MG eCW1 ([facility]) Metronidazole 500 MG Oral Tablet Metronidazole 500 MG 2019 12:00:00 AM EDT 1.0 {tablet} active Metronidazo le 500 MG eCW1 ([facility]) Levofloxacin 500 MG Oral Tablet Levaquin 500 MG Levaquin 500 MG 12/12/2019 12:00:00 AM EDT 1.0 {tablet} active Le vaquin 500 MG eCW1 ([facility]) Levofloxacin 500 MG Oral Tablet Levaquin 500 MG Levaquin 500 MG 12/12/2019 12:00:00 AM EDT 1.0 {tablet} active Le vaquin 500 MG eCW1 ([facility]) 150 mg 12/12/2019 12:00:00 AM EDT tablet 1 TAKE ONE TABLET BY MOUTH DAILY FOR ONE DAY TAKE ONE TABLET BY MOUTH DAILY FOR ONE DAY SOLD: 12/12/2019 [facility] Levofloxacin 500 MG Oral Tablet Levaquin 500 MG Levaquin 500 MG 12/12/2019 12:00:00 AM EDT 1.0 {tablet} active Le vaquin 500 MG eCW1 ([facility]) Fluconazole 150 MG Oral Tablet [Diflucan] Diflucan 150 MG Di flucan 150 MG 12/12/2019 12:00:00 AM EDT 1.0 {tablet} active Diflucan 150 MG eCW1 ([facility]) Levofloxacin 500 MG Oral Tablet Levaquin 500 MG Levaquin 500 MG 12/12/2019 12:00:00 AM EDT 1.0 {tablet} active Le vaquin 500 MG eCW1 ([facility]) 500 mg 12/12/2019 12:00:00 AM EDT tablet 7 TAKE ONE TABLET BY MOUTH EVERY DAY FOR 7 DAYS TAKE ONE TABLET BY MOUTH EVERY DAY FOR 7 DAYS SOLD: 12/12/2019 [facility] Fluconazole 150 MG Oral Tablet [Diflucan] Diflucan 150 MG Di flucan 150 MG 12/12/2019 12:00:00 AM EDT 1.0 {tablet} active Diflucan 150 MG eCW1 ([facility]) Fluconazole 150 MG Oral Tablet [Diflucan] Diflucan 150 MG Di flucan 150 MG 12/12/2019 12:00:00 AM EDT 1.0 {tablet} active Diflucan 150 MG eCW1 ([facility]) Fluconazole 150 MG Oral Tablet [Diflucan] Diflucan 150 MG Di flucan 150 MG 12/12/2019 12:00:00 AM EDT 1.0 {tablet} active Diflucan 150 MG eCW1 ([facility]) Fluconazole 150 MG Oral Tablet [Diflucan] Diflucan 150 MG Di flucan 150 MG 12/12/2019 12:00:00 AM EDT 1.0 {tablet} active Diflucan 150 MG eCW1 ([facility]) Levofloxacin 500 MG Oral Tablet Levaquin 500 MG Levaquin 500 MG 12/12/2019 12:00:00 AM EDT 1.0 {tablet} active Le vaquin 500 MG eCW1 ([facility]) NITROFURANTOIN, MACROCRYSTALS 25 MG / Ni trofurantoin, Monohydrate 75 MG Oral Capsule Nitrofurantoin Monohydrate/Macrocrystals 12/07/2019 12:00:00 AM EDT active MEDENT ([facility], [facility]) Fluconazole 150 MG Oral Tablet [Diflucan] Diflucan 12/07/2019 1 2:00:00 AM EDT active MEDENT ([facility]) Clotrimazole 10 MG/ML Topical Cream Clotrimazole 12/07/2019 12:00:00 AM EDT active MEDENT ([facility]) 1 % 12/07/2019 12:00:00 AM EDT cream 45 APPLY A SMALL AMOUNT TO VAGINAL ENTRANCE TWO TIMES A DAY FOR 7 DAYS APPLY A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
[2021-01-22 16:10] LABS: HEMATOCRIT 39.8 % (36.0-47.0); HEMOGLOBIN 13.3 g/dl (12.0-15.5); MEAN CORPUSCULAR HEMOGLOBIN 29.4 pg (27.0-33.0); MEAN CORPUSCULAR HGB CONC 33.4 g/dl (32.0-36.5); MEAN CORPUSCULAR VOLUME 87.9 fl (80.0-96.0); PLATELET COUNT, AUTOMATED 367 10^3/uL (150-450); RED BLOOD COUNT 4.53 10^6/uL (4.00-5.40); WHITE BLOOD COUNT 12.2 10^3/uL (4.0-10.0)
--- OUTSIDE RECORDS SUMMARY | 2021-01-22 17:06 | CCD ---
Author Author [facility] Organization [facility] Address Unknown Phone Unavailable Care Team Providers Care Assistant Fitness Manager Name Role Phone Naima Jin Unavailable PROBLEMS Type Condition ICD9-CM Code NFU00-VD Code Onset Dates Condition S tatus W/U Status Risk SNOMED Code Notes Problem Brain concussion, without loss of consciousness, initial encounter S06.0X0A Active confirmed 639396954 Problem Menorrhagia with regular cycle N92.0 Active confir med 280969417 Problem Anxiety F41.9 Active confirmed 33723389 Problem 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 confirmed 763235630 Problem Severe depression F32.2 Active confirmed 31 3334486 Problem Supervision of other normal Z34.80 Ac tive confirm 789507458 Problem Obesity affecting in first trimester O99 .211 Active confirmed 656407764624 Problem Obesity complicating in first trimester O99.211 Active confirmed 472678455441 Problem Obesity complicating in third trimester O99.213 Active confirmed 440499560093 Problem Acute cystitis with hematuria N30.01 Active confirm ed 94705549 Problem BMI 40.0-44.9, adult Z68.41 Active confirmed 174331901 Problem Cyst of left ovary N83.202 Active confirmed 31761725 Problem Obesity complicating in second trimester O99.212 Active confirmed 596591036711 Problem BMI 37.0-37.9, adult Z68.37 Active confirmed 991794905 Problem Other obesity due to excess calories E66.09 Act eloise confirmed 302110587 Problem Obesity E66.9 Active confirmed 320068276 ALLERGIES Allergen (clinical drug ingredient) Drug/Non Drug Allergy do cumented on EMR Reaction Allergy Type Onset Date Status azithromycin Azithromycin([facility] Code:[address]-27) Hives Drug All ergy Active tramadol Tramadol HCl([facility] Code:[address]-36) Hives Drug Aller gy Active cefdinir Cefdinir([facility] Code:[address]-59) Hives Drug Allergy Active doxycycline Doxycycline([facility] Code:[address]-97) Hives Drug Aller gy Active clindamycin Clindamycin HCl([facility] Code:[address]-33) Hives Drug A llergy Active bupropion BuPROPion HCl([facility] Code:[address]-23) Ir ritability - see 03/02/19 visit Drug Allergy Active ENCOUNTERS from 2000 to 2020-11-24 Encounter Location Date Provider Diagnosis [facility] [address] [phone] [place] [address] Oct, [facility] Jin examinati on following delivery Z39.2 IMMUNIZATIONS Vaccine [...] FOR REFERRAL No Information VITAL SIGNS Weight 220.2 lbs Oct, Height 64 in Oct, BMI 37.797 kg/m2 Oct, Blood pressure systolic 120 mm Hg Oct, Blood pressure diastolic 68 mm Hg Oct, MEDICATIONS Medication SIG (Take, Route, Frequency, Duration) [...] Information RESULTS No Results REASON FOR VISIT 6 wk pp MEDICAL (GENERAL) HISTORY Type Description Date Medical History Exercise induced asthma Medical History Concussions x2 Medical History Severe depression Medical History Paroxysmal Hemicrania - See [facility] NEurology notes (Intermittent left sided facial weakness with headaches likely secondary to some nerve damage sustained in facial trauma - Improved with Indomethacin BID Medical History Menorrhagia - Manged by INVESTIGATIVE AGENT on BCP Surgical History c section Hospitalization History childbirth Goals Section No Information Health Concerns No Information MEDICAL EQUIPMENT No Information MENTAL STATUS No Information FUNCTIONAL STATUS No Information ASSESSMENTS Encounter Date Diagnosis Assessment Notes Treatment Notes Treatm ent Clinical Notes Oct, examination follo wing delivery (ICD-10 - Z39.2) PLAN OF TREATMENT Next Appt Details 3 Months Reason:yearly Provider Name:Marisa Mullen, 2020-11 08:15:00 AM, [address], , [place], [address], Provider Name:Naima Jin, 2020-12-19 0 8:00:00 AM, [address] [facility] [facility], , [place], [address], Follow Up:3 Monthsyearly Insurance Providers Payer Name Payer Address Payer Phone Insured Name Patient Relati onship to Insured Coverage Start Date Coverage End Date [facility] [address] [facility] [phone] [place]
--- OUTSIDE RECORDS SUMMARY | 2021-01-22 17:06 | CCD ---
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 confirmed 813118081 Problem Severe depression F32.2 Active confirmed 31 3997180 Problem Supervision of other normal Z34.80 Ac tive confirm 138282502 Problem Obesity affecting in first trimester O99 .211 Active confirmed 079521528491 Problem Obesity complicating in first trimester O99.211 Active confirmed 435703981320 Problem Obesity complicating in third trimester O99.213 Active confirmed 576293681681 Problem Acute cystitis with hematuria N30.01 Active confirm ed 74773730 Problem BMI 40.0-44.9, adult Z68.41 Active confirmed 441833222 Problem Cyst of left ovary N83.202 Active confirmed 78632841 Problem Obesity complicating in second trimester O99.212 Active confirmed 649666510096 Problem BMI 37.0-37.9, adult Z68.37 Active confirmed 215679156 Problem Other obesity due to excess calories E66.09 Act eloise confirmed 558805012 Problem Obesity E66.9 Active confirmed 867127118 ALLERGIES Allergen (clinical drug ingredient) Drug/Non Drug Allergy do cumented on EMR Reaction Allergy Type Onset Date Status azithromycin Azithromycin([facility] Code:[address]-48) Hives Drug All ergy Active tramadol Tramadol HCl([facility] Code:[address]-49) Hives Drug Aller gy Active cefdinir Cefdinir([facility] Code:[address]-56) Hives Drug Allergy Active doxycycline Doxycycline([facility] Code:[address]-48) Hives Drug Aller gy Active clindamycin Clindamycin HCl([facility] Code:[address]-18) Hives Drug A llergy Active bupropion BuPROPion HCl([facility] Code:[address]-03) Ir ritability - see 03/02/19 visit Drug Allergy Active ENCOUNTERS from 2000 to 2020-11-07 Encounter Location Date Provider Diagnosis [facility] [address] [place] [address] Oct, Marisa Mullen Severe depression F32.2 IMMUNIZATIONS Vaccine Route Administration Date Status Influenza 6mo & up Fluzone IM Intramuscular Dec 22, 2017 Admi nistered Hepatitis B Ped & Adol 0.5mL Engerix-B Unknown Nov 09 002 Administered TDAP Unknown Nov 25, 2010 Administered TDAP 0.5mL Boostrix IM Intramuscular July 17, 2020 Administere d Imm: IPV 0.5mL Polio Unknown Nov 10, 2004 Administere d Hepatitis B Ped & Adol 0.5mL Engerix-B Unknown 2000 Administered Hepatitis B Ped & Adol 0.5mL Engerix-B Unknown July 25 002 Administered HIB 0.5mL Unknown Feb 27, 2002 Administered DTAP 0.5mL Infanrix Unknown 2000 Administered Influenza 36 months & up VFC IM Intramuscular Apr 04, 2017 Ad ministered Meningococcal VFC 0.5mL Menveo Groups A,C,Y & W-135 IM Intra muscular Oct 27, 2017 Administered MMR 0.5mL Unknown July 25, 2001 Administered HIB 0.5mL Unknown Nov 09, 2001 [...] Administe red Pneumococcal 0.5mL Prevnar 13 Unknown 2000 Ad ministered Pneumococcal 0.5mL Prevnar 13 Unknown May 02, 2001 Ad ministered Pneumococcal 0.5mL Prevnar 13 Unknown July 25, 2001 Ad ministered Pneumococcal 0.5mL Prevnar 13 Unknown Nov 09, 2001 Ad ministered Meningococcal B 0.5mL Bexsero IM Intramuscular September 26, 2019 A dministered MMR 0.5mL Unknown Nov 10, 2004 Administered Influenza 18 yrs & older Flublok IM Intramuscular Dec 20, 2019 Administered Hepatitis A Ped & Adol 0.5mL Havrix Unknown Nov 25 1 Administered Hepatitis A Ped & Adol 0.5mL Havrix Unknown May 30 12 Administered Imm: IPV 0.5mL Polio Unknown Jan 31, 2001 Administere d Imm: IPV 0.5mL Polio Unknown May 02, 2001 Administere d Imm: IPV 0.5mL Polio Unknown July 25, 2001 Administere d SOCIAL HISTORY Tobacco Use: [...] FOR REFERRAL No Information VITAL SIGNS Weight 225 lbs Oct, Height 64 in Oct, BMI 38.62 kg/m2 Oct, Heart Rate 87 /min Oct, Respiratory Rate 18 /min Oct, Temperature 97.2 degrees Fahrenheit Oct, Oximetry 99 Oct, Blood pressure systolic 120 mm Hg Oct, Blood pressure diastolic 70 mm Hg Oct, MEDICATIONS Medication SIG (Take, [...] Information RESULTS No Results REASON FOR VISIT anxiety depression MEDICAL (GENERAL) HISTORY Type Description Date Medical History Exercise induced asthma Medical History Concussions x2 Medical History Severe depression Medical History Paroxysmal Hemicrania - See [facility] NEurology notes (Intermittent left sided facial weakness with headaches likely secondary to some nerve damage sustained in facial trauma - Improved with Indomethacin BID Medical History Menorrhagia - Manged by ORDER SCHEDULE CLERK on BCP Surgical History c section Hospitalization History childbirth Goals Section No Information Health Concerns No Information MEDICAL EQUIPMENT No Information MENTAL STATUS No Information FUNCTIONAL STATUS No Information ASSESSMENTS Encounter Date Diagnosis Assessment Notes Treatment Notes Treatm ent Clinical Notes Oct, Severe depression (ICD-10 - F32.2) Advised and Educated on administration and side effects of meds prescribed and patient verbalized understanding of the same. She will establishing for counseling again PLAN OF TREATMENT Treatment Notes Assessment Notes Clinical Notes Severe depression Advised and Educated on administration and side effects of meds prescribed and patient verbalized understanding of the same.She will establishing for counseling again Next Appt Details 4 Weeks Reason: Provider Name:Marisa Mullen, 2020-11 08:15:00 AM, [address], , [place], [address], Provider Name:Naima Balaji Jin, 2020-12-19 0 8:00:00 AM, [address] [facility], , [place], [address], Insurance Providers Payer Name Payer Address Payer Phone Insured Name Patient Relati onship to Insured Coverage Start Date Coverage End Date [facility] [address] [facility] [phone] [place]
--- OUTSIDE RECORDS SUMMARY | 2021-01-22 17:07 | CCD ---
Author Author [facility] Organization [facility] Address Unknown Phone Unavailable Care Team Providers Care Post Anesthesia Nurse Name Role Phone Maring, Yaw PA Unavailable [...] Unavailable Maring, Yaw PA Unavailable Unavailable Jameson, Lnida Archana PA Unavailable Unavailable Jameson, Linda Archana [...] is protected by Article 27-F of the [facility] Public Health law. If you continue you may have access to information: Regarding HIV / AIDS; Provided by facilities licensed or operated by the [facility] Office of Mental Health; or Provided by the [facility] Office for People With Developmental Disabilities. If such information is present, then the following [facility] mandated warning applies: This information has [...] law may result in a fine or chcf sentence or both. A general authorization for the release of medical or other information is NOT sufficient authorization for further disc losure. Family History Family Member Name Family Member Gender Family Member Status Date o f Status Description Data Source(s) Unknown Unknown Problem MEDENT ([facility]) Encounters Encounter Providers Location Date Indications Data Source(s ) Unknown [address] [address] 01/14/2021 12:00:00 AM EDT eCW1 ([facility]) Unknown [address] [address] 12/24/2020 12:00:00 AM EDT eCW1 ([facility]) ( PROC) [facility] Procedure [address] [place] [address] 12/19/2020 12:00:00 AM EDT eCW1 ([facility]) Unknown [address] [facility] [address] 12/19/2020 12:00:00 AM EDT eCW1 ([facility]) Outpatient [address] [facility] [facility] [address] 12/12/2020 12:00:00 AM EDT eCW1 ([facility]) Unknown [address] [facility] [address] 11/26/2020 12:00:00 AM EDT eCW1 ([facility]) ( ESTOB) [facility]Center Est OB [address] [place] [address] 11/03/2020 12:00:00 AM EDT eCW1 ([facility]) Outpatient [address] [facility] [address] 10/30/2020 12:00:00 AM EDT eCW1 ([facility]) Unknown [address] [facility] [facility] [address] 10/18/2020 12:00:00 AM EDT eCW1 ([facility]) ( ESTOB) [facility] Est OB [address] [place] [address] 10/07/2020 12:00:00 AM EDT eCW1 ([facility]) (WC ESTOB) [facility] Est OB [address] [place] [address] 09/23/2020 12:00:00 AM EDT eCW1 ([facility]) (WC ESTOB) [facility] Est OB [address] [place] [address] 09/16/2020 12:00:00 AM EDT eCW1 ([facility]) (WC ESTOB) [facility] Est OB [address] [place] [address] 09/04/2020 12:00:00 AM EDT eCW1 ([facility]) Unknown [address] [facility] [address] 08/29/2020 12:00:00 AM EDT eCW1 ([facility]) Unknown [address] [facility] [address] 08/25/2020 12:00:00 AM EDT eCW1 ([facility]) (WC ESTOB) [facility] Est OB [address] [place] [address] 08/21/2020 12:00:00 AM EDT eCW1 ([facility]) (WC ESTOB) [facility] Est OB [address] [place] [address] 08/07/2020 12:00:00 AM EDT eCW1 ([facility]) Unknown [address] [facility] [address] 08/04/2020 12:00:00 AM EDT eCW1 ([facility]) Unknown [address] [facility] [address] 07/28/2020 12:00:00 AM EDT eCW1 ([facility]) Unknown [address] [facility] [address] 07/27/2020 12:00:00 AM EDT eCW1 ([facility]) (WC ESTOB) [facility] Est OB [address] [place] [address] 07/17/2020 12:00:00 AM EDT eCW1 ([facility]) Outpatient Attender: Yaw GARDINER 07/02/19 08:43:54 AM EDT - 07/01/2020 09:34:51 AM EDT DocuTap ([facility] ) ( ESTOB) enter Est OB [address] [place] [address] 06/19/2020 12:00:00 AM EDT eCW1 ([facility]) ( ESTOB) enter Est OB [address] [place] [address] 05/22/2020 12:00:00 AM EST eCW1 ([facility]) ( ESTOB) enter Est OB [address] [place] [address] 04/24/2020 12:00:00 AM EST eCW1 ([facility]) ( ESTOB) [facility] Est OB [address] [place] [address] 03/27/2020 12:00:00 AM EST eCW1 ([facility]) Unknown [address] [facility] [address] 03/11/2020 12:00:00 AM EST eCW1 ([facility]) ( NEWOB) [facility] New OB Visit [address] [place] [address] 02/28/2020 12:00:00 AM EST eCW1 ([facility]) Outpatient [address] [facility] [place] [address] 12/20/2019 12:00:00 AM EDT eCW1 ([facility]) Outpatient [address] [facility] [place] [address] 12/18/2019 12:00:00 AM EDT eCW1 ([facility]) Unknown [address] [facility] [place] [address] 12/18/2019 12:00:00 AM EDT eCW1 ([facility]) Outpatient [address] [facility] [address] 12/12/2019 12:00:00 AM EDT eCW1 ([facility]) Outpatient Attender: Archana morales 12/07/2019 10:15:00 AM EDT MEDENT ([facility]) Immunizations Vaccine Date Status Description Data Source(s) COVID-19 VACCINE Pfizer 08/28/2020 12:00:00 AM EDT completed [facility] Vaccine Series Complete: YESThis Data wa s Submitted to [facility]. COVID-19 VACCINE Pfizer 08/07/2020 12:00:00 AM EDT completed [facility] Vaccine Series Complete: NOThis Data was Submitted to [facility]. Tdap 07/17/2020 12:28:00 PM EDT completed e CW1 ([facility]) Tdap 07/17/2020 12:28:00 PM EDT completed e CW1 ([facility]) Tdap 07/17/2020 12:28:00 PM EDT completed e CW1 ([facility]) Tdap 07/17/2020 12:28:00 PM EDT completed e CW1 ([facility]) Tdap 07/17/2020 12:28:00 PM EDT completed e CW1 ([facility]) Tdap 07/17/2020 12:28:00 PM EDT completed e CW1 ([facility]) Tdap 07/17/2020 12:28:00 PM EDT completed e CW1 ([facility]) Tdap 07/17/2020 12:28:00 PM EDT completed e CW1 ([facility]) Tdap 07/17/2020 12:28:00 PM EDT completed e CW1 ([facility]) Tdap 07/17/2020 12:28:00 PM EDT completed e CW1 ([facility]) Tdap 07/17/2020 12:28:00 PM EDT completed e CW1 ([facility]) Tdap 07/17/2020 12:28:00 PM EDT completed e CW1 ([facility]) Tdap 07/17/2020 12:28:00 PM EDT completed e CW1 ([facility]) Tdap 07/17/2020 12:28:00 PM EDT completed e CW1 ([facility]) Tdap 07/17/2020 12:28:00 PM EDT completed e CW1 ([facility]) Tdap 07/17/2020 12:28:00 PM EDT completed e CW1 ([facility]) Tdap 07/17/2020 12:28:00 PM EDT completed e CW1 ([facility]) Tdap 07/17/2020 12:28:00 PM EDT completed e CW1 ([facility]) Tdap 07/17/2020 12:28:00 PM EDT completed e CW1 ([facility]) Tdap 07/17/2020 12:28:00 PM EDT completed e CW1 ([facility]) Tdap 07/17/2020 12:28:00 PM EDT completed e CW1 ([facility]) influenza, recombinant, quadrIvalent,injectable, prese rvative free 12/20/2019 08:58:00 AM EDT completed eCW1 ([facility]) influenza, recombinant, quadrIvalent,injectable, prese rvative free 12/20/2019 08:58:00 AM EDT completed eCW1 ([facility]) influenza, recombinant, quadrIvalent,injectable, prese rvative free 12/20/2019 08:58:00 AM EDT completed eCW1 ([facility]) influenza, recombinant, quadrIvalent,injectable, prese rvative free 12/20/2019 08:58:00 AM EDT completed eCW1 ([facility]) influenza, recombinant, quadrIvalent,injectable, prese rvative free 12/20/2019 08:58:00 AM EDT completed eCW1 ([facility]) influenza, recombinant, quadrIvalent,injectable, prese rvative free 12/20/2019 08:58:00 AM EDT completed eCW1 ([facility]) influenza, recombinant, quadrIvalent,injectable, prese rvative free 12/20/2019 08:58:00 AM EDT completed eCW1 ([facility]) influenza, recombinant, quadrIvalent,injectable, prese rvative free 12/20/2019 08:58:00 AM EDT completed eCW1 ([facility]) influenza, recombinant, quadrIvalent,injectable, prese rvative free 12/20/2019 08:58:00 AM EDT completed eCW1 ([facility]) influenza, recombinant, quadrIvalent,injectable, prese rvative free 12/20/2019 08:58:00 AM EDT completed eCW1 ([facility]) influenza, recombinant, quadrIvalent,injectable, prese rvative free 12/20/2019 08:58:00 AM EDT completed eCW1 ([facility]) influenza, recombinant, quadrIvalent,injectable, prese rvative free 12/20/2019 08:58:00 AM EDT completed eCW1 ([facility]) influenza, recombinant, quadrIvalent,injectable, prese rvative free 12/20/2019 08:58:00 AM EDT completed eCW1 ([facility]) influenza, recombinant, quadrIvalent,injectable, prese rvative free 12/20/2019 08:58:00 AM EDT completed eCW1 ([facility]) influenza, recombinant, quadrIvalent,injectable, prese rvative free 12/20/2019 08:58:00 AM EDT completed eCW1 ([facility]) influenza, recombinant, quadrIvalent,injectable, prese rvative free 12/20/2019 08:58:00 AM EDT completed eCW1 ([facility]) influenza, recombinant, quadrIvalent,injectable, prese rvative free 12/20/2019 08:58:00 AM EDT completed eCW1 ([facility]) influenza, recombinant, quadrIvalent,injectable, prese rvative free 12/20/2019 08:58:00 AM EDT completed eCW1 ([facility]) influenza, recombinant, quadrIvalent,injectable, prese rvative free 12/20/2019 08:58:00 AM EDT completed eCW1 ([facility]) influenza, recombinant, quadrIvalent,injectable, prese rvative free 12/20/2019 08:58:00 AM EDT completed eCW1 ([facility]) influenza, recombinant, quadrIvalent,injectable, prese rvative free 12/20/2019 08:58:00 AM EDT completed eCW1 ([facility]) influenza, recombinant, quadrIvalent,injectable, prese rvative free 12/20/2019 08:58:00 AM EDT completed eCW1 ([facility]) influenza, recombinant, quadrIvalent,injectable, prese rvative free 12/20/2019 08:58:00 AM EDT completed eCW1 ([facility]) influenza, recombinant, quadrIvalent,injectable, prese rvative free 12/20/2019 08:58:00 AM EDT completed eCW1 ([facility]) influenza, recombinant, quadrIvalent,injectable, prese rvative free 12/20/2019 08:58:00 AM EDT completed eCW1 ([facility]) influenza, recombinant, quadrIvalent,injectable, prese rvative free 12/20/2019 08:58:00 AM EDT completed eCW1 ([facility]) influenza, recombinant, quadrIvalent,injectable, prese rvative free 12/20/2019 08:58:00 AM EDT completed eCW1 ([facility]) influenza, recombinant, quadrIvalent,injectable, prese rvative free 12/20/2019 08:58:00 AM EDT completed eCW1 ([facility]) influenza, recombinant, quadrIvalent,injectable, prese rvative free 12/20/2019 08:58:00 AM EDT completed eCW1 ([facility]) influenza, recombinant, quadrIvalent,injectable, prese rvative free 12/20/2019 08:58:00 AM EDT completed eCW1 ([facility]) Medications Medication Brand Name Start Date Product Form Dose Route Admi nistrative Instructions Pharmacy Instructions Status Indications Reaction Description Data Source(s) Sulfamethoxazole 800 MG / Trimethoprim 1 60 MG Oral Tablet [Bactrim] Bactrim DS 800-160 MG Bactrim DS 800-160 MG 12/25/2020 12:00:00 AM EDT 1.0 {table t} active Bactrim DS 800-160 MG eCW1 ( [facility]) Sulfamethoxazole 800 MG / Trimethoprim 1 60 MG Oral Tablet [Bactrim] Bactrim DS 800-160 MG Bactrim DS 800-160 MG 12/25/2020 12:00:00 AM EDT 1.0 {table t} suspended Bactrim DS 800-160 MG eCW1 ( [facility]) Sulfamethoxazole 800 MG / Trimethoprim 1 60 MG Oral Tablet [Bactrim] Bactrim DS 800-160 MG Bactrim DS 800-160 MG 12/25/2020 12:00:00 AM EDT 1.0 {table t} active Bactrim DS 800-160 MG eCW1 ( [facility]) 24 HR venlafaxine 75 MG Extended Release Oral Capsule Venlafaxine HCl ER 75 MG Venlafaxine HCl ER 75 MG 10/30/2020 12:00:00 AM EDT 1.0 {capsule_wi th_food} active Venlafaxine HCl ER 75 MG eCW1 ([facility]) 24 HR venlafaxine 75 MG Extended Release Oral Capsule Venlafaxine HCl ER 75 MG Venlafaxine HCl ER 75 MG 10/30/2020 12:00:00 AM EDT 1.0 {capsule_wi th_food} active Venlafaxine HCl ER 75 MG eCW1 ([facility]) 24 HR venlafaxine 37.5 MG Extended Relea se Oral Capsule Venlafaxine HCl ER 37.5 MG Venlafaxine HCl ER 37.5 MG 10/30/2020 12:00:00 AM EDT 1.0 {capsule_with_food} active Venlafaxine HCl ER 37.5 MG eCW1 ([facility]) 24 HR venlafaxine 75 MG Extended Release Oral Capsule Venlafaxine HCl ER 75 MG Venlafaxine HCl ER 75 MG 10/30/2020 12:00:00 AM EDT 1.0 {capsule_wi th_food} active Venlafaxine HCl ER 75 MG eCW1 ([facility]) 24 HR venlafaxine 75 MG Extended Release Oral Capsule Venlafaxine HCl ER 75 MG Venlafaxine HCl ER 75 MG 10/30/2020 12:00:00 AM EDT 1.0 {capsule_wi th_food} active Venlafaxine HCl ER 75 MG eCW1 ([facility]) 24 HR venlafaxine 37.5 MG Extended Relea se Oral Capsule Venlafaxine HCl ER 37.5 MG Venlafaxine HCl ER 37.5 MG 10/30/2020 12:00:00 AM EDT 1.0 {capsule_with_food} active Venlafaxine HCl ER 37.5 MG eCW1 ([facility]) 24 HR venlafaxine 37.5 MG Extended Relea se Oral Capsule Venlafaxine HCl ER 37.5 MG Venlafaxine HCl ER 37.5 MG 10/30/2020 12:00:00 AM EDT 1.0 {capsule_with_food} active Venlafaxine HCl ER 37.5 MG eCW1 ([facility]) 24 HR venlafaxine 75 MG Extended Release Oral Capsule Venlafaxine HCl ER 75 MG Venlafaxine HCl ER 75 MG 10/30/2020 12:00:00 AM EDT 1.0 {capsule_wi th_food} active Venlafaxine HCl ER 75 MG eCW1 ([facility]) 24 HR venlafaxine 75 MG Extended Release Oral Capsule Venlafaxine HCl ER 75 MG Venlafaxine HCl ER 75 MG 10/30/2020 12:00:00 AM EDT 1.0 {capsule_wi th_food} suspended Venlafaxine HCl ER 75 MG eCW1 ([facility]) 24 HR venlafaxine 37.5 MG Extended Relea se Oral Capsule Venlafaxine HCl ER 37.5 MG Venlafaxine HCl ER 37.5 MG 10/30/2020 12:00:00 AM EDT 1.0 {capsule_with_food} active Venlafaxine HCl ER 37.5 MG eCW1 ([facility]) 24 HR venlafaxine 75 MG Extended Release Oral Capsule Venlafaxine HCl ER 75 MG Venlafaxine HCl ER 75 MG 10/30/2020 12:00:00 AM EDT 1.0 {capsule_wi th_food} active Venlafaxine HCl ER 75 MG eCW1 ([facility]) 24 HR venlafaxine 75 MG Extended Release Oral Capsule Venlafaxine HCl ER 75 MG Venlafaxine HCl ER 75 MG 10/30/2020 12:00:00 AM EDT 1.0 {capsule_wi th_food} active Venlafaxine HCl ER 75 MG eCW1 ([facility]) 24 HR venlafaxine 75 MG Extended Release Oral Capsule Venlafaxine HCl ER 75 MG Venlafaxine HCl ER 75 MG 10/30/2020 12:00:00 AM EDT 1.0 {capsule_wi th_food} active Venlafaxine HCl ER 75 MG eCW1 ([facility]) Omeprazole 20 MG Delayed Release Oral Capsule Omeprazole 20 MG 07/17/2020 12:00:00 AM EDT active Omeprazo le 20 MG eCW1 ([facility]) Omeprazole 20 MG Delayed Release Oral Capsule Omeprazole 20 MG 07/17/2020 12:00:00 AM EDT active Omeprazo le 20 MG eCW1 ([facility]) Omeprazole 20 MG Delayed Release Oral Capsule Omeprazole 20 MG 07/17/2020 12:00:00 AM EDT active Omeprazo le 20 MG eCW1 ([facility]) Omeprazole 20 MG Delayed Release Oral Capsule Omeprazole 20 MG 07/17/2020 12:00:00 AM EDT active Omeprazo le 20 MG eCW1 ([facility]) Omeprazole 20 MG Delayed Release Oral Capsule Omeprazole 20 MG 07/17/2020 12:00:00 AM EDT active Omeprazo le 20 MG eCW1 ([facility]) Omeprazole 20 MG Delayed Release Oral Capsule Omeprazole 20 MG 07/17/2020 12:00:00 AM EDT active Omeprazo le 20 MG eCW1 ([facility]) Omeprazole 20 MG Delayed Release Oral Capsule Omeprazole 20 MG 07/17/2020 12:00:00 AM EDT active Omeprazo le 20 MG eCW1 ([facility]) Omeprazole 20 MG Delayed Release Oral Capsule Omeprazole 20 MG 07/17/2020 12:00:00 AM EDT active Omeprazo le 20 MG eCW1 ([facility]) Omeprazole 20 MG Delayed Release Oral Capsule Omeprazole 20 MG 07/17/2020 12:00:00 AM EDT active Omeprazo le 20 MG eCW1 ([facility]) Omeprazole 20 MG Delayed Release Oral Capsule Omeprazole 20 MG 07/17/2020 12:00:00 AM EDT active Omeprazo le 20 MG eCW1 ([facility]) Omeprazole 20 MG Delayed Release Oral Capsule Omeprazole 20 MG 07/17/2020 12:00:00 AM EDT active Omeprazo le 20 MG eCW1 ([facility]) Omeprazole 20 MG Delayed Release Oral Capsule Omeprazole 20 MG 07/17/2020 12:00:00 AM EDT active e CW1 ([facility]) Omeprazole 20 MG Delayed Release Oral Capsule Omeprazole 20 MG 07/17/2020 12:00:00 AM EDT active Omeprazo le 20 MG eCW1 ([facility]) Omeprazole 20 MG Delayed Release Oral Capsule Omeprazole 20 MG 07/17/2020 12:00:00 AM EDT active Omeprazo le 20 MG eCW1 ([facility]) Omeprazole 20 MG Delayed Release Oral Capsule Omeprazole 20 MG 07/17/2020 12:00:00 AM EDT active Omeprazo le 20 MG eCW1 ([facility]) Omeprazole 20 MG Delayed Release Oral Capsule Omeprazole 20 MG 07/17/2020 12:00:00 AM EDT active Omeprazo le 20 MG eCW1 ([facility]) Omeprazole 20 MG Delayed Release Oral Capsule Omeprazole 20 MG 07/17/2020 12:00:00 AM EDT active Omeprazo le 20 MG eCW1 ([facility]) Omeprazole 20 MG Delayed Release Oral Capsule Omeprazole 20 MG 07/17/2020 12:00:00 AM EDT active Omeprazo le 20 MG eCW1 ([facility]) Omeprazole 20 MG Delayed Release Oral Capsule Omeprazole 20 MG 07/17/2020 12:00:00 AM EDT active Omeprazo le 20 MG eCW1 ([facility]) Omeprazole 20 MG Delayed Release Oral Capsule Omeprazole 20 MG 07/17/2020 12:00:00 AM EDT active Omeprazo le 20 MG eCW1 ([facility]) Omeprazole 20 MG Delayed Release Oral Capsule Omeprazole 20 MG 07/17/2020 12:00:00 AM EDT active Omeprazo le 20 MG eCW1 ([facility]) Metronidazole 500 MG Oral Tablet metroNIDAZOLE 500 MG metroN IDAZOLE 500 MG 07/02/2020 12:00:00 AM EDT 1.0 {tablet} suspende d metroNIDAZOLE 500 MG eCW1 ([facility]) Metronidazole 500 MG Oral Tablet metroNIDAZOLE 500 MG metroN IDAZOLE 500 MG 07/02/2020 12:00:00 AM EDT 1.0 {tablet} suspende d metroNIDAZOLE 500 MG eCW1 ([facility]) Metronidazole 500 MG Oral Tablet Metronidazole 500 MG 2020 12:00:00 AM EDT 1.0 {tablet} suspended e CW1 ([facility]) Metronidazole 500 MG Oral Tablet metroNIDAZOLE 500 MG metroN IDAZOLE 500 MG 07/02/2020 12:00:00 AM EDT 1.0 {tablet} suspende d metroNIDAZOLE 500 MG eCW1 ([facility]) Metronidazole 500 MG Oral Tablet metroNIDAZOLE 500 MG metroN IDAZOLE 500 MG 07/02/2020 12:00:00 AM EDT 1.0 {tablet} suspende d metroNIDAZOLE 500 MG eCW1 ([facility]) Metronidazole 500 MG Oral Tablet Metronidazole 500 MG 2020 12:00:00 AM EDT 1.0 {tablet} suspended Metronid azole 500 MG eCW1 ([facility]) Metronidazole 500 MG Oral Tablet metroNIDAZOLE 500 MG metroN IDAZOLE 500 MG 07/02/2020 12:00:00 AM EDT 1.0 {tablet} suspende d metroNIDAZOLE 500 MG eCW1 ([facility]) Metronidazole 500 MG Oral Tablet Metronidazole 500 MG 2020 12:00:00 AM EDT 1.0 {tablet} suspended Metronid azole 500 MG eCW1 ([facility]) Metronidazole 500 MG Oral Tablet metroNIDAZOLE 500 MG metroN IDAZOLE 500 MG 07/02/2020 12:00:00 AM EDT 1.0 {tablet} suspende d metroNIDAZOLE 500 MG eCW1 ([facility]) Metronidazole 500 MG Oral Tablet Metronidazole 500 MG 2020 12:00:00 AM EDT 1.0 {tablet} suspended Metronid azole 500 MG eCW1 ([facility]) Metronidazole 500 MG Oral Tablet metroNIDAZOLE 500 MG metroN IDAZOLE 500 MG 07/02/2020 12:00:00 AM EDT 1.0 {tablet} suspende d metroNIDAZOLE 500 MG eCW1 ([facility]) Metronidazole 500 MG Oral Tablet metroNIDAZOLE 500 MG metroN IDAZOLE 500 MG 07/02/2020 12:00:00 AM EDT 1.0 {tablet} suspende d metroNIDAZOLE 500 MG eCW1 ([facility]) Metronidazole 500 MG Oral Tablet metroNIDAZOLE 500 MG metroN IDAZOLE 500 MG 07/02/2020 12:00:00 AM EDT 1.0 {tablet} suspende d metroNIDAZOLE 500 MG eCW1 ([facility]) Metronidazole 500 MG Oral Tablet metroNIDAZOLE 500 MG metroN IDAZOLE 500 MG 07/02/2020 12:00:00 AM EDT 1.0 {tablet} suspende d metroNIDAZOLE 500 MG eCW1 ([facility]) Metronidazole 500 MG Oral Tablet metroNIDAZOLE 500 MG metroN IDAZOLE 500 MG 07/02/2020 12:00:00 AM EDT 1.0 {tablet} suspende d metroNIDAZOLE 500 MG eCW1 ([facility]) Metronidazole 500 MG Oral Tablet metroNIDAZOLE 500 MG metroN IDAZOLE 500 MG 07/02/2020 12:00:00 AM EDT 1.0 {tablet} suspende d metroNIDAZOLE 500 MG eCW1 ([facility]) Metronidazole 500 MG Oral Tablet METRONIDAZOLE 12/21/2019 [...] {tablet} active Metronidazo le 500 MG eCW1 ([facility]) Metronidazole 500 MG Oral Tablet Metronidazole 500 MG 2019 12:00:00 AM EDT 1.0 {tablet} active Metronidazo le 500 MG eCW1 ([facility]) Metronidazole 500 MG Oral Tablet Metronidazole 500 MG 2019 12:00:00 AM EDT 1.0 {tablet} active Metronidazo le 500 MG eCW1 ([facility]) Metronidazole 500 MG Oral Tablet Metronidazole 500 MG 2019 12:00:00 AM EDT 1.0 {tablet} active Metronidazo le 500 MG eCW1 ([facility]) Metronidazole 500 MG Oral Tablet Metronidazole 500 MG 2019 12:00:00 AM EDT 1.0 {tablet} active Metronidazo le 500 MG eCW1 ([facility]) Levofloxacin 500 MG Oral Tablet Levaquin 500 MG Levaquin 500 MG 12/12/2019 12:00:00 AM EDT 1.0 {tablet} active Le vaquin 500 MG eCW1 ([facility]) Levofloxacin 500 MG Oral Tablet Levaquin 500 MG Levaquin 500 MG 12/12/2019 12:00:00 AM EDT 1.0 {tablet} active Le vaquin 500 MG eCW1 ([facility]) 150 mg 12/12/2019 12:00:00 AM EDT tablet 1 TAKE ONE TABLET BY MOUTH DAILY FOR ONE DAY TAKE ONE TABLET BY MOUTH DAILY FOR ONE DAY SOLD: 12/12/2019 [facility] Levofloxacin 500 MG Oral Tablet Levaquin 500 MG Levaquin 500 MG 12/12/2019 12:00:00 AM EDT 1.0 {tablet} active Le vaquin 500 MG eCW1 ([facility]) Fluconazole 150 MG Oral Tablet [Diflucan] Diflucan 150 MG Di flucan 150 MG 12/12/2019 12:00:00 AM EDT 1.0 {tablet} active Diflucan 150 MG eCW1 ([facility]) Levofloxacin 500 MG Oral Tablet Levaquin 500 MG Levaquin 500 MG 12/12/2019 12:00:00 AM EDT 1.0 {tablet} active Le vaquin 500 MG eCW1 ([facility]) 500 mg 12/12/2019 12:00:00 AM EDT tablet 7 TAKE ONE TABLET BY MOUTH EVERY DAY FOR 7 DAYS TAKE ONE TABLET BY MOUTH EVERY DAY FOR 7 DAYS SOLD: 12/12/2019 [facility] Fluconazole 150 MG Oral Tablet [Diflucan] Diflucan 150 MG Di flucan 150 MG 12/12/2019 12:00:00 AM EDT 1.0 {tablet} active Diflucan 150 MG eCW1 ([facility]) Fluconazole 150 MG Oral Tablet [Diflucan] Diflucan 150 MG Di flucan 150 MG 12/12/2019 12:00:00 AM EDT 1.0 {tablet} active Diflucan 150 MG eCW1 ([facility]) Fluconazole 150 MG Oral Tablet [Diflucan] Diflucan 150 MG Di flucan 150 MG 12/12/2019 12:00:00 AM EDT 1.0 {tablet} active Diflucan 150 MG eCW1 ([facility]) Fluconazole 150 MG Oral Tablet [Diflucan] Diflucan 150 MG Di flucan 150 MG 12/12/2019 12:00:00 AM EDT 1.0 {tablet} active Diflucan 150 MG eCW1 ([facility]) Levofloxacin 500 MG Oral Tablet Levaquin 500 MG Levaquin 500 MG 12/12/2019 12:00:00 AM EDT 1.0 {tablet} active Le vaquin 500 MG eCW1 ([facility]) NITROFURANTOIN, MACROCRYSTALS 25 MG / Ni trofurantoin, Monohydrate 75 MG Oral Capsule Nitrofurantoin Monohydrate/Macrocrystals 12/07/2019 12:00:00 AM EDT active MEDENT ([facility], [facility]) Fluconazole 150 MG Oral Tablet [Diflucan] Diflucan 12/07/2019 1 2:00:00 AM EDT active [facility]) Clotrimazole 10 MG/ML Topical Cream Clotrimazole 12/07/2019 12:00:00 AM EDT active [facility] ([facility]) 1 % 12/07/2019 12:00:00 AM [...] type / Coverage type Policy ID Covered democrat ID Covered democrat's relationship to stoner Policy Stoner Plan Information [facility] [employer] [id number] SP [id number] [facility] BLUE [id number] SP [id number] BS [place] [employer] Commercial [id number] Family Dependent BS [place] [employer] Commercial [id number] Family Dependent Medicaid Dental S [id number] S [id number] o Blue Option Health Maintenance Organization (HMO) [id number] Family Dependent [facility] Community Plan Health Maintenance Organization (HMO) [id number] Family Dependent BS [place] [employer] Commercial [id number] Family Dependent [facility] Community Plan Health Maintenance Organization (HMO) [id number] Self EXCELLUS I [id number] Self [id number] EXCELLUS I [id number] Self [id number] [facility] [employer] [id number] Self [id number] ANSI-Commercial [id number] BCBS CHILD HEALTH PLUS [id number] SP [id number] ANSI-Commercial [id number] ANSI-Commercial [id number] Child Health Plus Health Maintenance Organization (O) [id number] Self [id number] ANSI-Commercial [id number] ANSI-Commercial [id number] ANSI-Commercial [id number] ANSI-Commercial [id number] EXCELLUS I [id number] Child [id number] EXCELLUS I [id number] Child [id number] ANSI-Commercial [id number] ANSI-Commercial [id number] ANSI-Commercial [id number] ANSI-Commercial [id number] ANSI-Commercial [id number] ANSI-Commercial [id number] ANSI-Commercial [id number] ANSI-Commercial [id number] ANSI-Commercial [id number] ANSI-Commercial [id number] ANSI-Commercial [id number]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
--- NOTE | 2021-01-22 17:09 | REP ---
INDICATION: vaginal bleeding, 9 weeks , IUD still in place. COMPARISON: 01/15/2021 TECHNIQUE: Transabdominal sonography of the pelvis and gravid uterus. FINDINGS: By prior ultrasound she is EDC 08/28/2021. Today's exam shows the uterus anteverted. There is a gestational sac in the fundus of the uterus. There is a pole with crown-rump length of 2.2 cm corresponding to 8 weeks 6 days. heart activity noted at 170 be p.m.. Small amount of fluid chest inferior to the sac measuring 1.6 x 0.7 cm. Posterior and inferior to the gestational sac is the IUD comments position generally unchanged from last week. The left ovary is 2 x 3.2 x 1.9 cm and shows normal Doppler tracing and color flow. The right ovary is not imaged. IMPRESSION: 1. Gestational sac in the body and fundus of the uterus with a pole consistent with 8 weeks 6 days giving EDC 08/28/2021. This is normal interval growth from 1 week ago. Heart rate 170. 2. There is a tiny subchorionic bleed inferior to the gestational sac and posteroinferior to the sac is the IUD, unchanged. <Electronically signed by Noel Holguin > 01/22/21 2200
[2021-01-22 19:13] VITALS: BP 131/65
== END 2021-01-22 19:15 | disposition home or self-care (01) ==
LOC: M ED 15:16
DX: O20.0 Threatened abortion (principal); O20.8 Other hemorrhage in early pregnancy; O26.891 Other specified pregnancy related conditions, first trimester; Z3A.08 8 weeks gestation of pregnancy; O26.31 Retained intrauterine contraceptive device in pregnancy, first trimester; Z86.19 Personal history of other infectious and parasitic diseases; O99.341 Other mental disorders complicating pregnancy, first trimester; O99.511 Diseases of the respiratory system complicating pregnancy, first trimester; Z88.1 Allergy status to other antibiotic agents; Z88.5 Allergy status to narcotic agent

== ENCOUNTER → 2021-02-11 | Outpatient (CLI) | payer OTHER ==
[~2021-02-11] MED LIST changes: +ACET-907 PO; +MULTTAB20 PO; +OMEP40CA4 PO
== END ==
LOC: M PLALAB 14:27
PROVIDERS: ATTEND Advanced Practice Midwife
DX: Z34.81 Encounter for supervision of other normal pregnancy, first trimester (principal)

== ENCOUNTER → 2021-02-11 | Outpatient (CLI) | payer OTHER ==
[2021-02-11 17:28] LABS: HEMOGLOBIN 12.8 g/dl (12.0-15.5); MEAN CORPUSCULAR HEMOGLOBIN 29.6 pg (27.0-33.0); MEAN CORPUSCULAR HGB CONC 32.8 g/dl (32.0-36.5); MEAN CORPUSCULAR VOLUME 90.3 fl (80.0-96.0); PLATELET COUNT, AUTOMATED 386 10^3/uL (150-450); RED BLOOD COUNT 4.32 10^6/uL (4.00-5.40); WHITE BLOOD COUNT 10.2 10^3/uL (4.0-10.0)
[2021-02-11 18:27] LABS: HEPATITIS C VIRUS ABY INDEX 0.1 INDEX (<0.8); HIV 1&2 SCREEN CENTAUR NEGATIVE (NEGATIVE)
[2021-02-11 18:33] LABS: GC DNA AMPLIFICATION NEGATIVE (NEGATIVE)
== END ==
LOC: M PLALAB 14:24
PROVIDERS: ATTEND Obstetrics & Gynecology
DX: Z36.89 Encounter for other specified antenatal screening (principal)

== ENCOUNTER 2021-03-04 06:47 | Emergency (ER) | payer OTHER ==
[~2021-03-04] VITALS: Ht 162.6 cm; Wt 98.6 kg
[~2021-03-04 06:47] MED LIST changes: -ACET-907 PO; -MULTTAB20 PO; -OMEP40CA4 PO
[2021-03-04] MEDS ORDERED: OMEP40CA4 PO (06:57)
[2021-03-04] MEDS ORDERED: MULTTAB20 PO (06:57)
[2021-03-04] MEDS ORDERED: ACET-907 PO (06:57)
[2021-03-04 07:46] LABS: BASO # 0.1 10^3/uL (0.0-0.2); BASO % 0.3 % (0.0-1.0); EOS # 0.3 10^3/uL (0.0-0.5); HEMATOCRIT 38.1 % (36.0-47.0); HEMOGLOBIN 12.9 g/dl (12.0-15.5); LYMPH # 1.4 10^3/uL (1.5-5.0); LYMPH % 8.3 % (24.0-44.0); MEAN CORPUSCULAR HEMOGLOBIN 30.3 pg (27.0-33.0); MEAN CORPUSCULAR HGB CONC 33.9 g/dl (32.0-36.5); MEAN CORPUSCULAR VOLUME 89.4 fl (80.0-96.0); MONO # 1.4 10^3/uL (0.0-0.8); MONO % 8.5 % (2.0-8.0); NEUTROPHILS # 13.2 10^3/uL (1.5-8.5); NEUTROPHILS % 80.6 % (36.0-66.0); PLATELET COUNT, AUTOMATED 336 10^3/uL (150-450); RED BLOOD COUNT 4.26 10^6/uL (4.00-5.40); WHITE BLOOD COUNT 16.4 10^3/uL (4.0-10.0)
[2021-03-04 08:04] LABS: BLOOD UREA NITROGEN 6 MG/DL (7-18); CALCIUM LEVEL 8.8 MG/DL (8.5-10.1); CARBON DIOXIDE LEVEL 25 MEQ/L (21-32); CHLORIDE LEVEL 107 MEQ/L (98-107); CREATININE FOR GFR 0.52 MG/DL (0.55-1.30); GLUCOSE, FASTING 100 MG/DL (70-100); POTASSIUM SERUM 3.7 MEQ/L (3.5-5.1); SODIUM LEVEL 139 MEQ/L (136-145)
[2021-03-04] MEDS ORDERED: NS 1,000 ML IV SCH (08:10)
--- NOTE | 2021-03-04 08:41 | REP ---
INDICATION: 14 weeks 5 day--vaginal discharge "gush of fluid" COMPARISON: 01/22/2021 TECHNIQUE: Transabdominal obstetrical ultrasound with color Doppler evaluation. FINDINGS: Examination demonstrates a single live intrauterine in footling breech presentation. motion is identified by technologist. heart rate equals 181 bpm. The placenta is identified anteriorly and grade 0 without evidence for placenta previa. Portions of unfused amnion are identified which is nonspecific finding. No discernible cervix is appreciated and there appears to be fluid extending into the endocervical canal. Amniotic fluid volume is subjectively low. There appears to be a small hyperechoic focus suggesting metallic artifact which should be correlated with the possible presence of IUD. This may also represent small myometrial calcifications. IMPRESSION: Live intrauterine in breech presentation. There is no obvious measurable cervix and there appears to be fluid extending into the endocervical canal. Other findings as noted above. <Electronically signed by Ovidio Callaway > 03/04/21 0837
[2021-03-04 09:01] VITALS: BP 131/68
== END 2021-03-04 09:05 | disposition admitted as inpatient to this hospital (09) ==
LOC: M ED 06:47
DX: O20.0 Threatened abortion (principal); Z97.5 Presence of (intrauterine) contraceptive device; Z88.1 Allergy status to other antibiotic agents; Z88.5 Allergy status to narcotic agent

== ENCOUNTER 2021-03-04 09:11 | Outpatient (CLI) | payer OTHER ==
[~2021-03-04] VITALS: Ht 162.6 cm; Wt 98.6 kg
[2021-03-04] VITALS (15 sets, daily range): BP systolic 108–147; BP diastolic 51–87
[~2021-03-04 09:11] MED LIST changes: +ACET-907 PO; +MULTTAB20 PO; +OMEP40CA4 PO
[2021-03-04 10:06] LABS: BASO # 0.1 10^3/uL (0.0-0.2); BASO % 0.3 % (0.0-1.0); EOS # 0.3 10^3/uL (0.0-0.5); EOS % 1.5 % (0.0-3.0); HEMATOCRIT 39.9 % (36.0-47.0); HEMOGLOBIN 13.3 g/dl (12.0-15.5); LYMPH # 1.7 10^3/uL (1.5-5.0); LYMPH % 8.8 % (24.0-44.0); MEAN CORPUSCULAR HEMOGLOBIN 30.1 pg (27.0-33.0); MEAN CORPUSCULAR HGB CONC 33.3 g/dl (32.0-36.5); MEAN CORPUSCULAR VOLUME 90.3 fl (80.0-96.0); MONO % 9.5 % (2.0-8.0); NEUTROPHILS # 15.2 10^3/uL (1.5-8.5); NEUTROPHILS % 79.5 % (36.0-66.0); PLATELET COUNT, AUTOMATED 335 10^3/uL (150-450); RED BLOOD COUNT 4.42 10^6/uL (4.00-5.40); WHITE BLOOD COUNT 19.2 10^3/uL (4.0-10.0)
[2021-03-04 10:16] LABS: MONO # 1.8 10^3/uL (0.0-0.8)
[2021-03-04] MEDS ORDERED: MORPHINE 10 MG/ML 1ML VIAL (J2270) SC ONE (10:20)
[2021-03-04] MEDS ORDERED: PROMETHAZINE INJ 25 MG/ML VIAL (J2550) IV ONE (10:20)
[2021-03-04] MEDS ORDERED: MORPHINE 10 MG/ML 1ML VIAL (J2270) IV ONE (10:20)
[2021-03-04] MEDS: LR 1,000 ML IV SCH ×2 (10:42→17:25)
[2021-03-04] MEDS ORDERED: OXYTOCIN 30 UNITS IN 0.9% NaCl 500ML IV BAG (J2590) As Ordered ONE (11:50)
[2021-03-04] MEDS ORDERED: ACETAMINOPHEN 500 MG TAB PO PRN (12:15)
[2021-03-04] MEDS ORDERED: ACETAMINOPHEN TAB 650MG DOSE (2X325MG) PO PRN (12:15)
[2021-03-04] MEDS ORDERED: METHYLERGONOVINE MALEATE 0.2 MG TAB PO PRN (12:15)
[2021-03-04] MEDS ORDERED: DOCUSATE SODIUM 100MG CAPSULE PO PRN (12:15)
[2021-03-04] MEDS ORDERED: IBUPROFEN 800 MG TAB PO PRN (12:15)
[2021-03-04] MEDS ORDERED: MEASLES,MUMPS,RUBELLA VACCINE INJ (MMR-II) (90707) SC SCH (12:15)
[2021-03-04] MEDS ORDERED: OXYTOCIN DRIP 30 UNITS in IV 1 EA IV SCH (12:15)
[2021-03-04] MEDS ORDERED: RHOGAM 300 MCG (1500 IU) INJ (J2790) IM SCH (12:15)
[2021-03-04] MEDS ORDERED: IBUPROFEN 600MG TAB PO PRN (12:15)
[2021-03-04] MEDS ORDERED: diphenhydrAMINE 50MG/ML VIAL (J1200) IM ONE (12:50)
[2021-03-04] MEDS ORDERED: diphenhydrAMINE 50MG/ML VIAL (J1200) IV ONE (12:55)
[2021-03-04] MEDS: AMPICILLIN SOD/SULBACTAM SOD 3 GM in D5W MINI-BAG PLUS 100 ML IV SCH ×2 (13:11→18:42)
[2021-03-04 18:30] LABS: GC DNA AMPLIFICATION NEGATIVE (NEGATIVE)
[2021-03-05] MEDS: AMPICILLIN SOD/SULBACTAM SOD 3 GM in D5W MINI-BAG PLUS 100 ML IV SCH (01:09)
[2021-03-05 01:10] VITALS: BP 108/51
[2021-03-05 04:48] VITALS: BP 111/53
[2021-03-05] MEDS ORDERED: PRENATAL VITAMINS CHEWABLE TABLET PO SCH (09:00)
== END 2021-03-05 06:14 | disposition home or self-care (01) ==
LOC: M LDO 09:11
PROVIDERS: ATTEND Advanced Practice Midwife
DX: O42.012 Preterm premature rupture of membranes, onset of labor within 24 hours of rupture, second trimester (principal); O02.1 Missed abortion; Z3A.14 14 weeks gestation of pregnancy
CPT/HCPCS: 36415; 85025; 86850; 86900; 86901; 87491; 87591; 87661; 88307; 96365; 96366; 96367; 96375; G0463; J1200; J2270; J2590; U0002

== ENCOUNTER → 2021-03-12 | Outpatient (REF) | payer OTHER ==
[2021-03-12 13:36] LABS: BASO % 0.5 % (0.0-1.0); EOS # 0.2 10^3/uL (0.0-0.5); EOS % 2.8 % (0.0-3.0); HEMOGLOBIN 13.4 g/dl (12.0-15.5); LYMPH # 2.5 10^3/uL (1.5-5.0); LYMPH % 32.4 % (24.0-44.0); MEAN CORPUSCULAR HEMOGLOBIN 29.5 pg (27.0-33.0); MEAN CORPUSCULAR HGB CONC 31.9 g/dl (32.0-36.5); MEAN CORPUSCULAR VOLUME 92.5 fl (80.0-96.0); MONO # 0.7 10^3/uL (0.0-0.8); MONO % 9.1 % (2.0-8.0); NEUTROPHILS # 4.3 10^3/uL (1.5-8.5); NEUTROPHILS % 54.6 % (36.0-66.0); PLATELET COUNT, AUTOMATED 448 10^3/uL (150-450); RED BLOOD COUNT 4.54 10^6/uL (4.00-5.40); WHITE BLOOD COUNT 7.8 10^3/uL (4.0-10.0)
== END ==
LOC: M SFHCADAM 07:41
PROVIDERS: ATTEND Family Medicine
DX: O03.9 Complete or unspecified spontaneous abortion without complication (principal)

== ENCOUNTER → 2021-04-10 | Outpatient (REF) | payer OTHER, MEDICAID | LOC: M LABDRWAD 16:57 | PROVIDERS: ATTEND Physician Assistant Medical | DX: O02.1 Missed abortion (principal) ==

== ENCOUNTER → 2021-04-21 | Outpatient (REF) | LOC: M LABSMTC 13:03 | PROVIDERS: ATTEND Family Medicine | DX: Z11.52 Encounter for screening for COVID-19 (principal) ==

== ENCOUNTER 2021-05-19 11:49 | Emergency (ER) | payer MEDICAID, OTHER ==
[~2021-05-19] VITALS: Ht 162.6 cm; Wt 91.8 kg
[2021-05-19 13:46] LABS: BASO % 0.4 % (0.0-1.0); EOS # 0.2 10^3/uL (0.0-0.5); HEMATOCRIT 43.5 % (36.0-47.0); LYMPH # 3.1 10^3/uL (1.5-5.0); LYMPH % 29.4 % (24.0-44.0); MEAN CORPUSCULAR HEMOGLOBIN 29.4 pg (27.0-33.0); MEAN CORPUSCULAR HGB CONC 32.2 g/dl (32.0-36.5); MEAN CORPUSCULAR VOLUME 91.4 fl (80.0-96.0); MONO % 9.1 % (2.0-8.0); NEUTROPHILS # 6.2 10^3/uL (1.5-8.5); NEUTROPHILS % 58.8 % (36.0-66.0); PLATELET COUNT, AUTOMATED 387 10^3/uL (150-450); RED BLOOD COUNT 4.76 10^6/uL (4.00-5.40); WHITE BLOOD COUNT 10.5 10^3/uL (4.0-10.0)
[2021-05-19 14:16] LABS: BLOOD UREA NITROGEN 12 MG/DL (7-18); CALCIUM LEVEL 9.3 MG/DL (8.5-10.1); CARBON DIOXIDE LEVEL 30 MEQ/L (21-32); CHLORIDE LEVEL 106 MEQ/L (98-107); CREATININE FOR GFR 0.56 MG/DL (0.55-1.30); GLUCOSE, FASTING 84 MG/DL (70-100); HCG, SERUM QUANTITATIVE < 1.0 MIU/ML; POTASSIUM SERUM 4.4 MEQ/L (3.5-5.1); SODIUM LEVEL 137 MEQ/L (136-145)
[2021-05-19 17:14] LABS: GC DNA AMPLIFICATION NEGATIVE (NEGATIVE)
[2021-05-19 17:52] VITALS: BP 135/83
== END 2021-05-19 18:09 | disposition home or self-care (01) ==
LOC: M ED 11:49
DX: N93.9 Abnormal uterine and vaginal bleeding, unspecified (principal); R93.41 Abnormal radiologic findings on diagnostic imaging of renal pelvis, ureter, or bladder; R10.2 Pelvic and perineal pain; N83.209 Unspecified ovarian cyst, unspecified side; F32.A Depression, unspecified; Z88.1 Allergy status to other antibiotic agents; Z88.8 Allergy status to other drugs, medicaments and biological substances; Z79.899 Other long term (current) drug therapy

== ENCOUNTER → 2022-09-15 | Outpatient (REF) | payer OTHER, MEDICAID | LOC: M LAB REF 11:33 | PROVIDERS: ATTEND Student in an Organized Health Care Education/Training Program | DX: J02.9 Acute pharyngitis, unspecified (principal) ==

== ENCOUNTER → 2022-11-30 | Outpatient (REF) | payer OTHER, MEDICAID ==
[2022-11-30 22:36] LABS: APPEARANCE, URINE HAZY (CLEAR); BACTERIA, URINE AUTO 1+ (NEGATIVE); BILIRUBIN, URINE AUTO NEGATIVE (NEGATIVE); BLOOD, URINE BLOOD 1+ (NEGATIVE); COLOR, URINE YELLOW (YELLOW); GLUCOSE, URINE (UA) AUTO NEGATIVE (NEGATIVE); KETONE, URINE AUTO NEGATIVE (NEGATIVE); LEUKOCYTE ESTERASE, URINE AUTO NEGATIVE (NEGATIVE); NITRITE, URINE AUTO NEGATIVE (NEGATIVE); PROTEIN, URINE AUTO NEGATIVE (NEGATIVE); RBC, URINE AUTO 4 /HPF (0-3); SPECIFIC GRAVITY URINE AUTO 1.025 (1.002-1.035); SQUAMOUS EPITHELIAL CELL UR AU 2 /HPF (0-6); UROBILINOGEN, URINE AUTO 0.2 mg/dL (0.0-2.0); WBC, URINE AUTO 3 /HPF (0-3)
[2022-11-30 23:24] LABS: GC DNA AMPLIFICATION NEGATIVE (NEGATIVE)
== END ==
LOC: M LAB REF 21:20
PROVIDERS: ATTEND Physician Assistant Medical
DX: N39.0 Urinary tract infection, site not specified (principal)

== ENCOUNTER → 2023-01-08 | Outpatient (REF) | payer OTHER, MEDICAID ==
[2023-01-08 20:01] LABS: GC DNA AMPLIFICATION NEGATIVE (NEGATIVE)
== END ==
LOC: M LAB REF 18:00
PROVIDERS: ATTEND Physician Assistant
DX: R30.0 Dysuria (principal)

== ENCOUNTER 2023-01-17 19:13 | Emergency (ER) | payer OTHER ==
[~2023-01-17] VITALS: Ht 160 cm; Wt 89.7 kg
[2023-01-17 19:14] VITALS: BP 130/70; TEMP 98.1; O2SAT 96
== END 2023-01-18 01:00 | disposition left against medical advice (07) ==
LOC: M ED 19:13
DX: Z53.21 Procedure and treatment not carried out due to patient leaving prior to being seen by health care provider (principal)

== ENCOUNTER → 2023-10-06 | Outpatient (REF) | payer OTHER ==
[2023-10-06 13:40] LABS: FREE T4 1.12 NG/DL (0.89-1.76)
[2023-10-06 13:41] LABS: THYROID STIMULATING HORMONE 0.983 uIU/ML (0.55-4.78)
[2023-10-06 13:42] LABS: ALBUMIN 3.9 G/DL (3.2-5.2); ALKALINE PHOSPHATASE 67 U/L (46-116); ALT/SGPT 11 U/L (7.0-40); AST/SGOT < 8 U/L (<34); BILIRUBIN,TOTAL 0.4 MG/DL (0.3-1.2); BLOOD UREA NITROGEN 9 MG/DL (9-23); CARBON DIOXIDE LEVEL 27 MMOL/L (20-31); CHLORIDE LEVEL 110 MMOL/L (98-107); CREATININE FOR GFR 0.57 MG/DL (0.55-1.30); GLOMERULAR FILTRATION RATE > 60.0 (>60); GLUCOSE, FASTING 79 MG/DL (60-100); POTASSIUM SERUM 4.6 MMOL/L (3.5-5.1); SODIUM LEVEL 141 MMOL/L (136-145)
[2023-10-06 13:48] LABS: HEMATOCRIT 41.1 % (36.0-47.0); HEMOGLOBIN 13.6 g/dl (12.0-15.5); MEAN CORPUSCULAR HEMOGLOBIN 30.9 pg (27.0-33.0); MEAN CORPUSCULAR HGB CONC 33.1 g/dl (32.0-36.5); MEAN CORPUSCULAR VOLUME 93.4 fl (80.0-96.0); PLATELET COUNT, AUTOMATED 336 10^3/uL (150-450); WHITE BLOOD COUNT 8.2 10^3/uL (4.0-10.0)
[2023-10-06 13:55] LABS: HEMOGLOBIN A1c 4.9 % (4.0-6.0)
== END ==
LOC: M SFHCADAM 08:49
PROVIDERS: ATTEND Physician Assistant
DX: E66.9 Obesity, unspecified (principal); Z13.1 Encounter for screening for diabetes mellitus

== ENCOUNTER → 2024-03-22 | Outpatient (REF) | payer OTHER | LOC: M SFHCADAM 10:16 | PROVIDERS: ATTEND Family Medicine | DX: Z01.84 Encounter for antibody response examination (principal) ==

== ENCOUNTER → 2024-03-26 | Outpatient (REF) | payer OTHER | LOC: M SFHCADAM 08:55 | PROVIDERS: ATTEND Family Medicine | DX: Z53.9 Procedure and treatment not carried out, unspecified reason (principal) ==

== ENCOUNTER → 2024-06-29 | Outpatient (REF) | payer OTHER, MEDICAID ==
[2024-06-29 13:13] LABS: APPEARANCE, URINE CLOUDY (CLEAR); BACTERIA, URINE AUTO NEGATIVE (NEGATIVE); BILIRUBIN, URINE AUTO NEGATIVE (NEGATIVE); BLOOD, URINE BLOOD 3+ (NEGATIVE); COLOR, URINE YELLOW (YELLOW); GLUCOSE, URINE (UA) AUTO NEGATIVE (NEGATIVE); KETONE, URINE AUTO NEGATIVE (NEGATIVE); LEUKOCYTE ESTERASE, URINE AUTO 2+ (NEGATIVE); NITRITE, URINE AUTO NEGATIVE (NEGATIVE); PROTEIN, URINE AUTO 2+ mg/dL (NEGATIVE); RBC, URINE AUTO TNTC /HPF (0-3); SQUAMOUS EPITHELIAL CELL UR AU 0 /HPF (0-6); UROBILINOGEN, URINE AUTO 0.2 mg/dL (0.0-2.0); WBC, URINE AUTO TNTC /HPF (0-3)
== END ==
LOC: M LAB REF 12:20
PROVIDERS: ATTEND Physician Assistant
DX: N39.0 Urinary tract infection, site not specified (principal)